=== PATIENT | female | born 1950 | race Caucasian/White ===

== ENCOUNTER 2019-04-27 09:26 | Inpatient (IN) ==
[2019-04-27] MEDS ORDERED: *HR* Warfarin 2 MG TABLET PO ONE (09:42)
[2019-04-27] MEDS ORDERED: *HR* Heparin 5,000 UNIT/ML VIAL IVP PRN (09:42)
[2019-04-27] MEDS ORDERED: *HR* Heparin 5,000 UNIT/ML VIAL IVP ONE (09:42)
[2019-04-27] MEDS ORDERED: *HR* Warfarin 5 MG TABLET PO ONE (09:42)
[2019-04-27] MEDS ORDERED: Gadolinium Contrast Agent (WT Based) IV PRN (09:46)
--- NOTE | 2019-04-27 10:11 | Emergency Department Note ---
Disposition Clinical Impression: Dural sinus thrombosis, CVA (cerebral vascular accident) Multiple myeloma Qualifiers: Multiple myeloma remission status: unspecified Qualified Code(s): C90.00 - Multiple myeloma not having achieved remission Disposition: Admitted As Inpatient Condition: Fair Referrals: Sylvester Boswell MD [Partnered Physician] - Time of Disposition: 13:14 General Adult HPI - General Stated complaint: Blood clot brain Time Seen by Provider: 04/27/19 09:37 Source: patient, family Limitations: no limitations - History of Present Illness Pain Scale: 0 - Related Data Home Medications Medication Instructions Recorded Confirmed Aspirin [Lo-Dose Aspirin EC] 81 mg PO DAILY 11/10/17 04/06/19 hydroCHLOROthiazide 25 mg PO DAILY 01/05/18 04/06/19 [Hydrochlorothiazide] cloNIDine HCl [CloNIDine HCl] 0.1 mg PO TID 02/03/18 04/06/19 Lisinopril [Zestril] 40 mg PO DAILY 03/04/18 04/06/19 Cetirizine HCl [24Hour Allergy] 10 mg PO DAILY 07/06/18 04/06/19 Potassium Chloride [K-Tab ER] 20 meq PO DAILY 12/21/18 04/06/19 Previous Rx's Medication Instructions Recorded Handicap Placard 1 each .ROUTE AD #1 each 04/03/17 Lidocaine/Prilocaine [Emla] 1 appl TP AD #30 gm 05/11/17 Venlafaxine XR (24 HR) [Effexor Xr] 150 mg PO DAILY #90 cap.er.24h 08/03/18 Diphenoxylate/Atropine [Lomotil 2 each PO TID PRN 20 Days #120 10/11/18 2.5 mg/0.025 mg] tablet Ergocalciferol (VITAMIN D2) 50,000 unit PO 2XW #24 capsule 11/05/18 [Vitamin D2] Oxycodone HCl [Roxybond] 5 mg PO Q6H PRN 20 Days #80 12/09/18 tablet.orl Acyclovir [Zovirax] 400 mg PO BID #180 tablet 12/21/18 FLUoxetine HCl [Fluoxetine HCl] 40 mg PO BID #60 capsule 01/12/19 LORazepam [Ativan] 0.5 mg PO Q8H PRN 30 Days #60 01/12/19 tablet Oxybutynin [Ditropan] 5 mg PO DAILY #30 tablet 01/12/19 Prochlorperazine Maleate 10 mg PO Q6H PRN #30 tablet 01/12/19 [Compazine] Handicap Placard 1 each .ROUTE AD #1 each 01/26/19 Allergies Allergy/AdvReac Type Severity Reaction Status Date / Time No Known Allergies Allergy Verified 04/06/19 08:37 Past Medical History - Past Medical History Medical history: Reports: cancer, hyperlipidemia, hypertension Surgical history: Reports: orthopedic, other, other Psychiatric history: Reports: depression - Social History Smoking Status: Never smoker Smokeless Tobacco Status: No Alcohol use: Reports: none Drug use: Reports: none Physical Exam - General Limitations: no limitations General appearance: alert, in no apparent distress Course Vital Signs Temperature 98.0 F 04/27/19 09:27 Pulse Rate 90 04/27/19 09:27 Respiratory Rate 16 04/27/19 09:27 Blood Pressure 142/80 04/27/19 09:27 O2 Sat by Pulse Oximetry 98 04/27/19 09:27 Temperature 98.0 F 04/27/19 09:58 Pulse Rate 90 04/27/19 09:58 Respiratory Rate 16 04/27/19 09:58 Blood Pressure 142/80 04/27/19 09:58 O2 Sat by Pulse Oximetry 98 04/27/19 09:58 Oxygen Delivery Oxygen Delivery Room Air Medical Decision Making - Lab Data Result diagrams: 04/27/19 10:00 04/27/19 10:00 Lab Results 04/27/19 04/27/19 04/27/19 Range/Units 10:00 10:00 10:00 WBC 5.9 (4.3-11.1) K/mcL RBC 4.84 (3.82-4.97) M/mcL Hgb 14.4 (11.5-15.4) g/dL Hct 42.2 (35.3-44.9) % MCV 87.2 (83.0-100.0) fL MCH 29.8 (28.0-33.3) pg MCHC 34.1 (31.6-35.5) g/dL RDW 12.2 (11.5-14.5) % Plt Count 194 (140-400) K/mcL MPV 10.1 (9.4-12.4) fL Immature Gran % 0.3 (0-4) % Seg Neutrophils % 76.8 % Lymphocytes % 14.7 % Monocytes % 7.4 % Eosinophils % 0.3 % Basophils % 0.5 % Neutrophils # 4.6 (1.6-8.9) K/mcL Lymphocytes # 0.9 (0.6-4.6) K/mcL Monocytes # 0.4 (0.0-1.3) K/mcL Eosinophils # 0.0 (0.0-0.6) K/mcL Basophils # 0.0 (0.0-0.2) K/mcL PT 10.4 (9.4-12.1) Seconds INR 0.9 APTT 29.0 (26.0-36.0) Seconds Heparin Anti-Xa, Unfract 0.07 L (0.30-0.70) IU/mL Sodium 140 (136-145) mEq/L Potassium 4.0 (3.5-5.1) mEq/L Chloride 99 (98-107) mEq/L Carbon Dioxide 29 (23-29) mEq/L BUN 16 (8-23) mg/dL Creatinine 0.89 (0.60-1.20) mg/dL Est GFR ( Amer) > 60 (> 60) Est GFR (Non-Af Amer) > 60 (> 60) BUN/Creatinine Ratio 18 (6-26) Glucose 92 (70-105) mg/dL Calculated Osmolality 291 (280-300) Calcium 9.4 (8.6-10.3) mg/dL Critical Care Time Critical Care Time: Yes Total Critical Care Time: 35 Attestation: Critical care performed: Time is exclusive of separately billable procedures. Time includes: direct patient care, patient reassessment, coordination of patient care, interpretation of data (laboratory data, radiology data, and respiratory data), review of patient's medical records, medical consultation and documentation of patient care. Procedures included in critical care time: Procedures excluded from critical care time: Attestation Statement - Attestation Attestation: I, Cosme Vasquez DO, examined this patient [id number] and my medical decis ion-making was reviewed with Dr. Brigette Mcdonadl, Resident Physician. I agree with the documented findings, disposition and treatment plan as described except to the extent set forth below. I personally supervised and was present for the patiño/critical portions of the procedures completed by the resident documented below. Please see my progress notes for details. 69-year-old female presents emergency room for evaluation of CT abnormalities that were noted from her neurologist. Patient has multiple myeloma and breast cancer that have both been treated in the past. She is still currently in chemotherapy secondary to the multiple myeloma. She is diagnosed earlier this month with a stroke . Patient has CT angiography of the abdomen neck yesterday. There is concern for dural venous thrombosis is well possible progression of her stroke. Patient was sent in today for evaluation and heparin infusion with bridging to Coumadin. Patient denies any new neurologic symptoms. She has had intermittent hallucinations at home. She denies any falls trauma or injury. All the symptoms of been slowly coming on over the last several months. Currently she denying chest pain shortness of breath fevers or chills. She does not have any active headache or vision changes. She has intermittently say that she has double vision but this also comes and goes. She has not been started on any new medications. She has not had any prolonged immobilization or surgical intervention. Vital signs are reviewed and are stable. Head is atraumatic. Pupils are equal round reactive. Extraocular muscles are intact with no signs of lateral muscle impingement. Her oropharynx is patent. Trachea is midline. She has full range of motion the neck with no stridor no trismus no meningeal symptoms noted at this time. Lungs are clear heart is regular. Extremities appear to be normal. Patient has no visible signs of ataxia while walking. CT noncontrasted evaluation has been ordered this time considering that timeframe of [address] angiography as well as the patient's described acute stroke noted on the CT angiography yesterday. Once that is completed MRI of the head and MRV will be completed. Patient was screening labs ordered and resulted secondary to the concern for anticoagulation therapy going to be intermittent. Patient is otherwise stable. Risks and benefits to the anti-coagulation therapy were discussed with the family and they are comfortable this plan. Patient also understands his risks. EKG was documented. Reviewed by myself in documented by the resident physician. No acute etiology or changes noted at this time. Patient is otherwise stable. Disposition pending full workup and treatment course. See detailed documentation of the physical exam, medical intervention, medical decision-making and disposition in the resident physician's note. No critical care provider the patient's treatment course at this time. 1300 Imaging modalities are negative for any acute signs of bleed or progressive stroke at this point. She does have confirmed a dural venous thrombosis. Patient will be started on heparin with first dose of Coumadin to be given here. We did discuss this with the on-call neurologist and they are comfortable the patient being admitted and treated at this facility. The hospitalist Dr. Magana also reviewed the case and no other concerns or issues noted at this point. Medications have been given appropriately here in the emergency department and patient will be monitored until the admission process is complete d. 35 minutes of critical care applied secondary to multidisciplinary intervention as well as medical management of what appears to be an acute stroke venous thrombosis or subacute stroke.
--- NOTE | 2019-04-27 10:13 | Emergency Department Note ---
Disposition Clinical Impression: Dural sinus thrombosis Multiple myeloma Qualifiers: Multiple myeloma remission status: unspecified Qualified Code(s): C90.00 - Multiple myeloma not having achieved remission Disposition: Admitted As Inpatient Condition: Good Referrals: Sylvester Boswell MD [Primary Care Provider] - Time of Disposition: 12:59 General Adult HPI - General Stated complaint: Blood clot brain Time Seen by Provider: 04/27/19 09:37 Source: patient, family Mode of arrival: private vehicle Limitations: no limitations Nursing Notes Reviewed: Yes Vital Signs Reviewed: Yes - History of Present Illness HPI Narrative: 69F Pmhx multiple myeloma being treated at the [facility] and here with Dr. Vaughn, Hx breast cancer and HTN. 3 weeks ago started sudden left sided paresthesia and weakness, thought it was related to chemo. Kept happening and did not resolve, so she saw oncologist who eval'd her for CVA who determined she had CVA and thrombosis. Denies current symptoms except for weakness, paresthesia has resolved. Denies new vision changes, headache. Only blood thinner she's on is ASA. Denies dizziness, vertigo. PE: Weakness in left leg/left arm 4/5, no sensory deficit in dermatomes, right lateral nystagmus. Neuro exam without other deficits. I have re-performed and reviewed the history documented by the medical student, and I confirm its accuracy except as noted below. 69-year-old female that was diagnosed with breast cancer in 2013 and multiple myeloma in 2017 and started on an oral medication and then recently transitioned to chemotherapy once a month November of this year. Patient has been having nonspecific symptoms of left-sided weakness and numbness which she attributed to cancer nerve damage for the last 2 months, but was seen by her physician 3 weeks ago and diagnosed with a stroke. Patient has undergone recent imaging with a CTA of her head yesterday which was concerning for a dural sinus thrombosis, her neurologist called the department this morning and stated that he would like her to be started on Coumadin and heparin receive an MRV and be admitted to the hospitalist with oncology consultation. Patient is denying any current symptoms including headache, shortness of breath, chest pain, belly pain, weakness, dizziness. Pain Scale: 0 - Related Data Home Medications Medication Instructions Recorded Confirmed Aspirin [Lo-Dose Aspirin EC] 81 mg PO DAILY 11/10/17 04/06/19 hydroCHLOROthiazide 25 mg PO DAILY 01/05/18 04/06/19 [Hydrochlorothiazide] cloNIDine HCl [CloNIDine HCl] 0.1 mg PO TID 02/03/18 04/06/19 Lisinopril [Zestril] 40 mg PO DAILY 03/04/18 04/06/19 Cetirizine HCl [24Hour Allergy] 10 mg PO DAILY 07/06/18 04/06/19 Potassium Chloride [K-Tab ER] 20 meq PO DAILY 12/21/18 04/06/19 Previous Rx's Medication Instructions Recorded Handicap Placard 1 each .ROUTE AD #1 each 04/03/17 Lidocaine/Prilocaine [Emla] 1 appl TP AD #30 gm 05/11/17 Venlafaxine XR (24 HR) [Effexor Xr] 150 mg PO DAILY #90 cap.er.24h 08/03/18 Diphenoxylate/Atropine [Lomotil 2 each PO TID PRN 20 Days #120 10/11/18 2.5 mg/0.025 mg] tablet Ergocalciferol (VITAMIN D2) 50,000 unit PO 2XW #24 capsule 11/05/18 [Vitamin D2] Oxycodone HCl [Roxybond] 5 mg PO Q6H PRN 20 Days #80 12/09/18 tablet.orl Acyclovir [Zovirax] 400 mg PO BID #180 tablet 12/21/18 FLUoxetine HCl [Fluoxetine HCl] 40 mg PO BID #60 capsule 01/12/19 LORazepam [Ativan] 0.5 mg PO Q8H PRN 30 Days #60 01/12/19 tablet Oxybutynin [Ditropan] 5 mg PO DAILY #30 tablet 01/12/19 Prochlorperazine Maleate 10 mg PO Q6H PRN #30 tablet 01/12/19 [Compazine] Handicap Placard 1 each .ROUTE AD #1 each 01/26/19 Allergies Allergy/AdvReac Type Severity Reaction Status Date / Time No Known Allergies Allergy Verified 04/06/19 08:37 Review of Systems: In addition to that documented in the HPI above, the additional ROS was obtained: Constitutional: Denies fevers or chills Eyes: Denies vision changes ENMT: Denies sore throat CV: Denies chest pain Resp: Denies SOB GI: Denies vomiting or diarrhea : Denies painful urination MSK: Denies recent trauma Skin: Denies new rashes Neuro: Denies new numbness or tingling or weakness Past Medical History - Past Medical History Attestation: Yes The following information was validated with the patient. Medical history: Reports: cancer, hyperlipidemia, hypertension Surgical history: Reports: orthopedic, other, other Psychiatric history: Reports: depression - Social History Smoking Status: Never smoker Smokeless Tobacco Status: No Alcohol use: Reports: none Drug use: Reports: none Physical Exam General: A&O x 3. No acute distress. Well developed, well nourished. Head: atraumatic, normocephalic. ENT: No conjunctival injection, no scleral icterus. PERRLA. EOMI. Oropharynx non-erythematous. mucous membranes moist. Neuro: No focal deficits, no speech deficit, no facial droop, mentating well. BUE/BLE Str 5/5. Sebastian UE/LE sensation intact. CN II-XII intact. Pulm: Lungs CTAB A/P. No wheezes, rales, ronchi. Cardio: RRR no m/r/g. Chest not tender to palpation. Abd: Soft, non-distended. Normoactive bowel sounds. Non-tender to palpation. No guarding. Non rigid. Extremities: Radial pulses 2+ sebastian, dorsalis pedis/posterior tibialis 2+ sebastian. No LE edema. No cyanosis, clubbing. Skin: warm, dry, intact. No rashes. Psych: Appropriate mood and affect. Answers questions appropriately. Cooperative with exam. - General Limitations: no limitations General appearance: alert, in no apparent distress Course Vital Signs Temperature 98.0 F 04/27/19 09:27 Pulse Rate 90 04/27/19 09:27 Respiratory Rate 16 04/27/19 09:27 Blood Pressure 142/80 04/27/19 09:27 O2 Sat by Pulse Oximetry 98 04/27/19 09:27 Temperature 98.0 F 04/27/19 09:58 Pulse Rate 90 04/27/19 09:58 Respiratory Rate 16 04/27/19 09:58 Blood Pressure 142/80 04/27/19 09:58 O2 Sat by Pulse Oximetry 98 04/27/19 09:58 Oxygen Delivery Oxygen Delivery Room Air Medical Decision Making - MDM Narrative Medical decision making narrative: 69-year-old female that presents after her neurologist was concerned that she needed to be started on anticoagulation for a dural sinus thrombosis utilized on CTA yesterday. Patient underwent a head CT as well as an MRI of the brain and MRV of the brain which did not demonstrate any hemorrhage Darlin conversion of previous stroke, and showed a stable sinus thrombosis. Neurology was consult head, my attending Dr. Vasquez spoke with Winston Donovan in Neurology who stated that the patient should be started on coumadin and heparin as planned and that they were comfortable with the patient staying here for treatment. Spoke with hospitalist, Dr. Magana, who agreed to accept the patient to his service. Results of the workup including any imaging and/or labwork was shared with the patient at bedside. Patient was given an opportunity to ask questions at bedside and all of their concerns were addressed. Patient verbalized understanding and agreement with plan of care. Pt remained stable while in the department. - Medical Records Medical records reviewed: Yes I reviewed the patient's medical records. - Lab Data Lab results reviewed: Yes I reviewed the patient's lab results. Result diagrams: 04/27/19 10:00 04/27/19 10:00 Lab Results 04/27/19 04/27/19 04/27/19 Range/Units 10:00 10:00 10:00 WBC 5.9 (4.3-11.1) K/mcL RBC 4.84 (3.82-4.97) M/mcL Hgb 14.4 (11.5-15.4) g/dL Hct 42.2 (35.3-44.9) % MCV 87.2 (83.0-100.0) fL MCH 29.8 (28.0-33.3) pg MCHC 34.1 (31.6-35.5) g/dL RDW 12.2 (11.5-14.5) % Plt Count 194 (140-400) K/mcL MPV 10.1 (9.4-12.4) fL Immature Gran % 0.3 (0-4) % Seg Neutrophils % 76.8 % Lymphocytes % 14.7 % Monocytes % 7.4 % Eosinophils % 0.3 % Basophils % 0.5 % Neutrophils # 4.6 (1.6-8.9) K/mcL Lymphocytes # 0.9 (0.6-4.6) K/mcL Monocytes # 0.4 (0.0-1.3) K/mcL Eosinophils # 0.0 (0.0-0.6) K/mcL Basophils # 0.0 (0.0-0.2) K/mcL PT 10.4 (9.4-12.1) Seconds INR 0.9 APTT 29.0 (26.0-36.0) Seconds Heparin Anti-Xa, Unfract 0.07 L (0.30-0.70) IU/mL Sodium 140 (136-145) mEq/L Potassium 4.0 (3.5-5.1) mEq/L Chloride 99 (98-107) mEq/L Carbon Dioxide 29 (23-29) mEq/L BUN 16 (8-23) mg/dL Creatinine 0.89 (0.60-1.20) mg/dL Est GFR ( Amer) > 60 (> 60) Est GFR (Non-Af Amer) > 60 (> 60) BUN/Creatinine Ratio 18 (6-26) Glucose 92 (70-105) mg/dL Calculated Osmolality 291 (280-300) Calcium 9.4 (8.6-10.3) mg/dL - Radiology Data Radiology results reviewed: Yes I reviewed the patient's radiology results. Head CT 04/27/19 09:41 IMPRESSION: 1. Involving right occipital lobe infarct without evidence for hemorrhagic transformation. 2. Chronic small vessel ischemic disease. D/ / Jeremiah Foreman MD / Jeremiah Foreman MD Interpreting Provider: Jeremiah Foreman MD Head/Brain Mag Res Venography 04/27/19 09:46 IMPRESSION: Filling defect within the left distal transverse and sigmoid sinus compatible with thrombus. D/ / Mateo Culp MD / Mateo Culp MD Interpreting Provider: Mateo Culp MD Brain MRI 04/27/19 10:13 IMPRESSION: 1. No acute intracranial abnormality. No acute infarct. 2. Areas of subacute infarct involving the left frontal and right parietal lobes. 3. Loss of the normal signal void is seen in the left transverse and sigmoid sinus, which is similar to the prior exam. This can be seen with slow flow versus occlusion/thrombus. 4. Mild global parenchymal volume loss with chronic microvascular ischemic changes. D/ / Mateo Culp MD / Mateo Culp MD Interpreting Provider: Mateo Culp MD Attestation Statement - Attestation Attestation: I, Cosme Vasquez DO, examined this patient [id number] and my medical decision-making was reviewed with Dr. Brigette Mcdonald, Resident Physician. I agree with the documented findings, disposition and treatment plan as described except to the extent set forth below. I personally supervised and was present for the patiño/critical portions of the procedures completed by the resident documented below. Please see my progress notes for details.
[2019-04-27 10:22] LABS: Basophils % 0.5 %; Eosinophils % 0.3 %; Hematocrit 42.2 % (35.3-44.9); Hemoglobin 14.4 g/dL (11.5-15.4); Immature Granulocytes % 0.3 % (0-4); Lymphocytes # 0.9 K/mcL (0.6-4.6); Lymphocytes % 14.7 %; Mean Corpuscular HGB Conc 34.1 g/dL (31.6-35.5); Mean Corpuscular Hemoglobin 29.8 pg (28.0-33.3); Mean Corpuscular Volume 87.2 fL (83.0-100.0); Mean Platelet Volume 10.1 fL (9.4-12.4); Monocytes # 0.4 K/mcL (0.0-1.3); Monocytes % 7.4 %; Neutrophils # 4.6 K/mcL (1.6-8.9); Platelet Count 194 K/mcL (140-400); Red Blood Count 4.84 M/mcL (3.82-4.97); Red Cell Distribution Width 12.2 % (11.5-14.5); Segmented Neutrophils % 76.8 %; White Blood Count 5.9 K/mcL (4.3-11.1)
[2019-04-27 10:32] LABS: Heparin anti-factor XA UFH 0.07 IU/mL (0.30-0.70); INR 0.9; Prothrombin Time 10.4 Seconds (9.4-12.1)
[2019-04-27 10:51] LABS: BUN/Creatinine Ratio 18 (6-26); Blood Urea Nitrogen 16 mg/dL (8-23); Calcium 9.4 mg/dL (8.6-10.3); Carbon Dioxide 29 mEq/L (23-29); Chloride 99 mEq/L (98-107); Glucose 92 mg/dL (70-105); Osmolality,Calculated 291 (280-300); Sodium 140 mEq/L (136-145); eGFR For African Americans > 60 (> 60); eGFR For Non-African Americans > 60 (> 60)
[2019-04-27] MEDS: Heparin 25,000 UNIT/250 ML D5W 25,000 UNIT/250 ML IV.SOLN IVC SCH (13:11)
[2019-04-27] MEDS ORDERED: Naloxone 0.4 MG/ML INJ IVP PRN (15:04)
[2019-04-27] MEDS ORDERED: Diphenoxylate/Atropine 1 TAB TABLET PO PRN (15:14)
[2019-04-27] MEDS ORDERED: *HR* OxyCODONE Immed Rel 5 MG TABLET PO PRN (15:14)
--- NOTE | 2019-04-27 15:16 | Neurology - Consult Note ---
<Winston Donovan J - Last Filed: 04/27/19 17:16> Date of Encounter: 04/27/19 Time of Encounter: 15:07 Assessment and Plan (1) Dural sinus thrombosis Current Visit: Yes Status: Acute SX of left leg numbness No other neurological complaints Recent CVA x3 weeks ago CTA head/neck with findings concerning for dural sinus thrombosis See in f/u in Neurology clinic today; instructed to go to ED MRI today negative for acute infarct finding only areas of subacute infarct in the left frontal and right parietal lobe MRV revealing a filling defect within the left distal transverse and sigmoid sinus compatible with thrombus She is being admitted for close monitoring of her neurological status; NIHSS and neurological assessments per protocol She is currently on a heparin GTT; transition to Coumadin Will likely need long-term oral anticoagulation; I suspect she will need 3 months or longer given h/o breast cancer and multiple myeloma Rec hem/onc cs to provide recommendations regarding duration of tx in the setting of breast cancer and multiple myeloma Neurology will f/u in am; please call should any urgent needs arise History of Present Illness Chief complaint: dural sinus thrombosis HPI: Ms. Edwards is a 69 year old female with a PMH of multiple myeloma in 2016, breast cancer in 2013, HLD and HTN who presents today from the Neurology clinic d/t CTA head and neck imaging concerning for dural sinus thrombosis. As she reports she has been experiencing ongoing left leg numbness and tingling. She was diagnosed with a CVA three weeks ago. The workup s/p CVA revealed the above findings. As such she is being admitted for anticoagulation bridging and monitoring. She denies any visual or gait disturbances, denies any dysarthria, dysphagia, headaches, facial asymmetry, unilateral weakness or parasthesias. MRI of the brain completed today reveals no acute intracranial abnormality, specifically no acute infarct. There are areas of subacute infarct involving the left frontal and right parietal lobes. Additionally there is loss of normal signal void seen in the left transverse and sigmoid sinus which is similar to prior exam. Subsequently, an MRV found filling defect in the left distal transverse and sigmoid sinus compatible with thrombus. Past Med Surg Social Fam HX - Past Medical History Medical history: cancer, hyperlipidemia, hypertension Additional medical history: Right Breast CA. Multiple Myeloma. Radiation/Chemo [place] Psychiatric history: depression - Past Surgical History Surgical History: orthopedic, other, other Additional surgical history: Back surgery, meniscus tear, shoulder spur removal, pins placed - Social History Smoking Status: Never smoker Smokeless Tobacco Status: No Alcohol use: none Drug use: none - Family History Brother Hx Family Cancer: Yes (prostate) Medications and Allergies Handicap Placard 1 each .ROUTE AD #1 each 04/03/17 [Rx] Lidocaine/Prilocaine [Emla] 1 appl TP AD #30 gm 05/11/17 [Rx] Aspirin [Lo-Dose Aspirin EC] 81 mg PO DAILY 11/10/17 [History] hydroCHLOROthiazide [Hydrochlorothiazide] 25 mg PO DAILY 01/05/18 [History] cloNIDine HCl [CloNIDine HCl] 0.1 mg PO TID 02/03/18 [History] Lisinopril [Zestril] 40 mg PO DAILY 03/04/18 [History] Cetirizine HCl [24Hour Allergy] 10 mg PO DAILY 07/06/18 [History] Venlafaxine XR (24 HR) [Effexor Xr] 150 mg PO DAILY #90 cap.er.24h 08/03/18 [Rx] Diphenoxylate/Atropine [Lomotil 2.5 mg/0.025 mg] 2 each PO TID PRN 20 Days #120 tablet 10/11/18 [Rx] Ergocalciferol (VITAMIN D2) [Vitamin D2] 50,000 unit PO 2XW #24 capsule 11/05/18 [Rx] Oxycodone HCl [Roxybond] 5 mg PO Q6H PRN 20 Days #80 tablet.orl 12/09/18 [Rx] Acyclovir [Zovirax] 400 mg PO BID #180 tablet 12/21/18 [Rx] Potassium Chloride [K-Tab ER] 20 meq PO DAILY 12/21/18 [History] FLUoxetine HCl [Fluoxetine HCl] 40 mg PO BID #60 capsule 01/12/19 [Rx] LORazepam [Ativan] 0.5 mg PO Q8H PRN 30 Days #60 tablet 01/12/19 [Rx] Oxybutynin [Ditropan] 5 mg PO DAILY #30 tablet 01/12/19 [Rx] Prochlorperazine Maleate [Compazine] 10 mg PO Q6H PRN #30 tablet 01/12/19 [Rx] Handicap Placard 1 each .ROUTE AD #1 each 01/26/19 [Rx] Allergy/AdvReac Type Severity Reaction Status Date / Time No Known Allergies Allergy Verified 04/06/19 08:37 All Systems: The remainder of the systems were reviewed and are negative Review of Systems: REVIEW OF SYSTEMS NEUROLOGIC: Negative for any blurry vision, blind spots, double vision, facial asymmetry, dysphagia, dysarthria, hemiparesis, hemisensory deficits, vertigo, ataxia, unilateral weakness POSITIVE- left leg numbness CARDIAC: Negative for any chest pain, dyspnea, peripheral edema or palpitations MUSCULOSKELETAL: NEGATIVE-Joint pain, stiffness, loss of strength Physical Examination - Vital Signs Vital Signs: Initial Vital Signs Temp Pulse Resp BP Pulse Ox 98.0 F 90 16 142/80 98 04/27/19 09:27 04/27/19 09:27 04/27/19 09:27 04/27/19 09:27 04/27/19 09:27 - Exam Exam: Examination: General Examination: *CONSTITUTIONAL: Alert and oriented x3, no acute distress *GENERAL APPEARANCE OF PATIENT appears healthy and well groomed *EYES: pupils equal, round, reactive to light and accommodation, conjunctiva clear *CARDIOVASCULAR: RRR, no peripheral edema, distal temperature normal, dorsalis pedis pulses normal. Refer to vital signs * MUSCULOSKELETAL: *GAIT AND STATION: Deferred *ASSESSMENT OF MUSCLE STRENGTH IN THE UPPER AND LOWER EXTREMITIES Bilateral deltoid, bicep, tricep, grocery stocker strength 5/5, Right hip flexors ,anterior tibialis, dorsoflexion of the foot 5/5. Left hip flexor, anterior tibialis is 4/5 *MUSCLE TONE IN THE UPPER AND LOWER EXTREMITIES normal. No abnormal movements, fasciculations or atrophy identified. Neurological: *ORIENTATION to person, situation, time and place *LANGUAGE AND FUNCTION no significant aphasia or dysarthia was noted. *ATTENTION AND CONCENTRATION are normal *LANGUAGE FUNCTION no significant aphasia or dysarthia was noted. *FUND OF KNOWLEDGE aware of current events, past history, vocabulary *MENTAL attention span and concentration normal. *CN II optic fundi were normal, no papilledema noted. *CN III,IV, PERRLA extraocular eye movements were full, no nystagmus and no ptosis noted. *CN V shows normal sensation and jaw opens symmetrically. *CN VII shows normal facial movement symmetrically, upper and lower bilaterally. *CN VIII shows no significant hearing loss on exam *CN IX-Xpalate elevated symmetrically *CN XI normal strength in the sternocleidomastoid muscles, symmetrical shoulder shrugging. *CN XII tongue protruded in the midline, with normal strength and movement. *SENSORY EXAMINATION light touch intact *REFLEXES: DTR b/l bicep, brachioradialis, and tricep are 1/4 diffusely, absent b/l patella and plantar reflexes, no pathological reflexes were noted. *CEREBELLAR TESTING normal finger to nose, heel/knee/claire *PAIN LEVEL 0/10 Results - Laboratory Findings CBC and BMP: 04/27/19 10:00 04/27/19 10:00 Abnormal lab findings: Abnormal lab results Heparin Anti-Xa, Unfract 0.07 IU/mL (0.30-0.70) L 04/27/19 10:00 - Diagnostic Findings Additional findings: MR/MR angio veno head wo/w con IMPRESSION: Filling defect within the left distal transverse and sigmoid sinus compatible with thrombus. MR/MR head/brain wo con IMPRESSION: 1. No acute intracranial abnormality. No acute infarct. 2. Areas of subacute infarct involving the left frontal and right parietal lobes. 3. Loss of the normal signal void is seen in the left transverse and sigmoid sinus, which is similar to the prior exam. This can be seen with slow flow versus occlusion/thrombus. 4. Mild global parenchymal volume loss with chronic microvascular ischemic changes. Consult Discharge Plan - Plan Referrals: Sylvester Boswell MD [Primary Care Provider] - <Barber Durant - Last Filed: 04/27/19 18:34> Date of Encounter: 04/27/19 Assessment and Plan (1) Dural sinus thrombosis Current Visit: Yes Status: Acute I have personally performed a [id number] assessment of the patient and have reviewed the PA/FLEXOGRAPHIC PRESS PLATE SETTER note. My impressions are as follows: As stated previously the case was discussed with the [facility] PSYCHI[facility]ST as well as Dr. Schreiber. I did review the neuroimaging studies and examined the patient personally. I agree with his assessment and plan as documented above. Patient at this time is showing no evidence of acute distress no evidence of increased intracranial pressure is present. We will follow. History of Present Illness HPI: The chart was reviewed, the patient was seen and examined independently. Case was discussed with the [employer] [facility] PSYCHIATRIST as well as Dr. Schreiber. I agree with the documentation of the history of present illness as outlined above. She denies ever having any history of previous deep vein thrombosis or pulmonary embolisms. Denies any history of miscarriages during . Denies cigarette smoking. All Systems: The remainder of the systems were reviewed and are negative Review of Systems: The balance of the systems review is negative. Physical Examination - Vital Signs Vital Signs: Initial Vital Signs Temp Pulse Resp BP Pulse Ox 98.0 F 90 16 142/80 98 04/27/19 09:27 04/27/19 09:27 04/27/19 09:27 04/27/19 09:27 04/27/19 09:27 - Exam Exam: I have personally performed a [id number] assessment of the patient and have reviewed the PA/FLEXOGRAPHIC PRESS PLATE SETTER note. My impressions are as follows: I agree with the neurologic examination is documented above. Results - Laboratory Findings CBC and BMP: 04/27/19 10:00 04/27/19 10:00 Abnormal lab findings: Abnormal lab results Heparin Anti-Xa, Unfract 1.11 IU/mL (0.30-0.70) H* 04/27/19 15:58
--- NOTE | 2019-04-27 15:20 | Internal Med History&Physical ---
Date of Encounter: 04/27/19 Time of Encounter: 15:15 Internal Medicine - H&P: HPI Chief complaint: Dural venous thrombosis Admitted From: Emergency Dept Plans for Post Hospital Care: Home History of present illness: Ms. Edwards is a 69 year old female with a past medical history significant for multiple myeloma diagnosed in 2017 currently following up with oncology, breast cancer status post lumpectomy in 2013 with chemoradiation, currently in remission, hypertension, stroke, is being admitted to the hospital from the emergency department because of diagnosis of dural sinus thrombosis. Patient had a stroke almost 3 weeks back with weakness in the lower extremities, patient was following up with a neurologist which she had CTA of THE NECK DONE WHICH SHOWED left sigmoid sinus thrombosis. Patient was sent by the neurologist to the hospital today for anticoagulation. MR angiography was done in the emergency department which showed filling defect within the left distal transverse and sigmoid sinus compatible with thrombus. Patient was started on heparin drip and admitted to continue the heparin drip and being transitioned to Coumadin. Patient does not have any previous history of deep vein thrombosis. Currently, patient denies any visual disturbance, dysarthria, dysphagia, headaches, paresthesia. Patient endorses numbness of the right lower extremity which has been present for 3-4 weeks. Previous MRI has showed areas of subacute infarct involving the left frontal and right parietal lobes. There are no acute findings regarding stroke on the most recent CT scan and the MRI. Patient was hemodynamically stable in the emergency department. Laboratory workup did not show any significant findings. No arrhythmias noted on EKG Past Med Surg Social Fam HX - Past Medical History Medical history: cancer, hyperlipidemia, hypertension Additional medical history: Right Breast CA. Multiple Myeloma. Radiation/Chemo [place] Psychiatric history: depression - Past Surgical History Surgical History: orthopedic, other, other Additional surgical history: Back surgery, meniscus tear, shoulder spur removal, pins placed - Social History Smoking Status: Never smoker Smokeless Tobacco Status: No Alcohol use: none Drug use: none - Family History Brother Hx Family Cancer: Yes (prostate) Internal Medicine - H&P: Meds Handicap Placard 1 each .ROUTE AD #1 each 04/03/17 [Rx] Lidocaine/Prilocaine [Emla] 1 appl TP AD #30 gm 05/11/17 [Rx] Aspirin [Lo-Dose Aspirin EC] 81 mg PO DAILY 11/10/17 [History] hydroCHLOROthiazide [Hydrochlorothiazide] 25 mg PO DAILY 01/05/18 [History] cloNIDine HCl [CloNIDine HCl] 0.1 mg PO TID 02/03/18 [History] Lisinopril [Zestril] 40 mg PO DAILY 03/04/18 [History] Cetirizine HCl [24Hour Allergy] 10 mg PO DAILY 07/06/18 [History] Venlafaxine XR (24 HR) [Effexor Xr] 150 mg PO DAILY #90 cap.er.24h 08/03/18 [Rx] Diphenoxylate/Atropine [Lomotil 2.5 mg/0.025 mg] 2 each PO TID PRN 20 Days #120 tablet 10/11/18 [Rx] Ergocalciferol (VITAMIN D2) [Vitamin D2] 50,000 unit PO 2XW #24 capsule 11/05/18 [Rx] Oxycodone HCl [Roxybond] 5 mg PO Q6H PRN 20 Days #80 tablet.orl 12/09/18 [Rx] Acyclovir [Zovirax] 400 mg PO BID #180 tablet 12/21/18 [Rx] Potassium Chloride [K-Tab ER] 20 meq PO DAILY 12/21/18 [History] FLUoxetine HCl [Fluoxetine HCl] 40 mg PO BID #60 capsule 01/12/19 [Rx] LORazepam [Ativan] 0.5 mg PO Q8H PRN 30 Days #60 tablet 01/12/19 [Rx] Oxybutynin [Ditropan] 5 mg PO DAILY #30 tablet 01/12/19 [Rx] Prochlorperazine Maleate [Compazine] 10 mg PO Q6H PRN #30 tablet 01/12/19 [Rx] Handicap Placard 1 each .ROUTE AD #1 each 01/26/19 [Rx] Allergy/AdvReac Type Severity Reaction Status Date / Time No Known Allergies Allergy Verified 04/06/19 08:37 All Systems PM: A 10-system review of systems was performed and is negative for pertinent findings except as documented above in the HPI. Review of systems: General: Negative for fever, chills, rigors. HEENT: Negative for swelling, discharge from nose, discharge from ears. EYES: Negative for any discharge from the eyes. Respiratory: Negative for shortness of breath, orthopnea, exertional dyspnea. Cardiovascular: Negative for chest pain, shortness of breath, orthopnea, PND. Gastrintestical: Negative for diarrhea, constipation, blood in stools. Genitourinary: Negative for dysuria, hematuria, nocturia, increased frequency of urine. Hematological: Negative for blood loss, negative for active cancer. Neurological: See HPI Endocrinology: Negative for constipation, polyuria, polydipsia. Psychiatric: Negative for anxiety or depression. - Constitutional Vitals: Temp Pulse Resp BP Pulse Ox 98.7 F 98 16 147/82 98 04/27/19 15:09 04/27/19 15:09 04/27/19 15:09 04/27/19 15:09 04/27/19 15:09 Exam: General: Alert and oriented, no physical distress, able to follow commands. HEENT: No thyromegaly, no lymphadenopathy, no discharge. Eyes: No discharge. Respiratory: Normal vesicular breathing, no added sounds, breathing equal in both sides. CVS: Normal heart sounds, no murmurs, no edema. Extremities: No peripheral edema, peripheral pulses intact. Lymph nodes: No lymphadenopathy Gastrointestinal: Soft, nontender abdomen, normal abdominal sounds. No distention noted. Genitourinary: No paravertebral tenderness. Neurological: Alert and oriented. Motor exam normal in lower extremites, sensations to light touch normal, plantar reflexes decreased on both sides, finger ot nose test normal, Cranial nerves II-XII intact. Internal Med - H&P Results - Labs CBC & Chem 7: 04/27/19 10:00 04/27/19 10:00 Labs: Short CBC 04/27/19 Range/Units 10:00 WBC 5.9 (4.3-11.1) K/mcL Hgb 14.4 (11.5-15.4) g/dL Hct 42.2 (35.3-44.9) % Plt Count 194 (140-400) K/mcL Neutrophils # 4.6 (1.6-8.9) K/mcL BMP 04/27/19 10:00 Sodium 140 Potassium 4.0 Chloride 99 Carbon Dioxide 29 BUN 16 Creatinine 0.89 Glucose 92 Calcium 9.4 - Impressions ITS Impressions Head CT 04/27/19 09:41 IMPRESSION: 1. Involving right occipital lobe infarct without evidence for hemorrhagic transformation. 2. Chronic small vessel ischemic disease. D/ / Jeremiah Foreman MD / Jeremiah Foreman MD Interpreting Provider: Jeremiah Foreman MD Head/Brain Mag Res Venography 04/27/19 09:46 IMPRESSION: Filling defect within the left distal transverse and sigmoid sinus compatible with thrombus. D/ / Mateo Culp MD / Mateo Culp MD Interpreting Provider: Mateo Culp MD Brain MRI 04/27/19 10:13 IMPRESSION: 1. No acute intracranial abnormality. No acute infarct. 2. Areas of subacute infarct involving the left frontal and right parietal lobes. 3. Loss of the normal signal void is seen in the left transverse and sigmoid sinus, which is similar to the prior exam. This can be seen with slow flow versus occlusion/thrombus. 4. Mild global parenchymal volume loss with chronic microvascular ischemic changes. D/ / Mateo Culp MD / Mateo Culp MD Interpreting Provider: Mateo Culp MD - Assessment and Plan (1) Dural sinus thrombosis Current Visit: Yes Status: Acute Assessment and plan: - imaging studies consistent with left distal transverse and sigmoid sinus thrombosis. Neurology on board. Patient has been started on heparin drip, is being transitioned to Coumadin. Patient might be needing lifelong anticoagulation considering multiple myeloma. We will consult hematology/oncology for recommendations. No focal deficits noted. NIH/ neurological checks as per neurology recommendations. PT/OT (2) Back pain Current Visit: Yes Status: Chronic Assessment and plan: -Chronic in context of MM -On oxycodone -COntinue the pain regimne Qualifiers: Back pain location: low back pain Chronicity: chronic Back pain laterality: bilateral Sciatica presence: unspecified whether sciatica present Qualified Code(s): M54.5 - Low back pain; G89.29 - Other chronic pain (3) Hypertension Current Visit: Yes Status: Chronic Assessment and plan: -BP stable -COntinue clonidine, lisinopril Qualifiers: Hypertension type: essential hypertension Qualified Code(s): I10 - Essent ial (primary) hypertension (4) CVA (cerebral vascular accident) Current Visit: Yes Status: Acute Assessment and plan: -Had a CVA 3 weeks back as evidnce by the MRI with some lower extremity residual weakness -No new findings on MRI today -COnt aspirin -Neuro on board -PT/OT Qualifiers: CVA mechanism: unspecified Qualified Code(s): I63.9 - Cerebral infarction, unspecified (5) Multiple myeloma Current Visit: Yes Status: Acute Assessment and plan: -F/u with the oncology Qualifiers: Multiple myeloma remission status: unspecified Qualified Code(s): C90.00 - Multiple myeloma not having achieved remission (6) Anxiety Current Visit: No Status: Chronic Assessment and plan: -Curretly looks calm -On ativan PRN for anxiety which we weill continue (7) Anticoagulated on Coumadin Current Visit: Yes Status: Acute Assessment and plan: -Started on AC on coumadin -INR before starting was 0.9 -Was given 5mg PO in the ED -Will check INR tomorrow morning -Further coumadin dosing and adjustments as per pharmacy - Time Spent With Patient Total time spent is greater than 50% in coordination of care (as documented) at patient's floor/unit and/or counseling patient:
[2019-04-27] MEDS ORDERED: Warfarin perPT PO PRN (18:00)
[2019-04-27] MEDS: FLUoxetine 20 MG CAPSULE PO SCH (21:36)
[2019-04-27] MEDS: cloNIDine HCl 0.1 MG TABLET PO SCH (21:36)
[2019-04-27] MEDS: Acyclovir 200 MG CAPSULE PO SCH (21:37)
[2019-04-27] MEDS: *HR* LORazepam 0.5 MG TABLET PO PRN (21:37)
[2019-04-27] MEDS: *HR* Heparin 5,000 UNIT/ML VIAL IVP PRN (23:21)
[2019-04-28 05:57] LABS: Basophils % 0.4 %; Eosinophils % 0.8 %; Hematocrit 41.4 % (35.3-44.9); Hemoglobin 14.1 g/dL (11.5-15.4); Immature Granulocytes % 0.2 % (0-4); Lymphocytes # 1.1 K/mcL (0.6-4.6); Lymphocytes % 21.6 %; Mean Corpuscular HGB Conc 34.1 g/dL (31.6-35.5); Mean Corpuscular Hemoglobin 30.3 pg (28.0-33.3); Mean Platelet Volume 9.9 fL (9.4-12.4); Monocytes # 0.4 K/mcL (0.0-1.3); Monocytes % 7.4 %; Neutrophils # 3.7 K/mcL (1.6-8.9); Platelet Count 166 K/mcL (140-400); Red Blood Count 4.65 M/mcL (3.82-4.97); Red Cell Distribution Width 12.2 % (11.5-14.5); Segmented Neutrophils % 69.6 %; White Blood Count 5.2 K/mcL (4.3-11.1)
[2019-04-28 06:15] LABS: BUN/Creatinine Ratio 17 (6-26); Blood Urea Nitrogen 13 mg/dL (8-23); Carbon Dioxide 25 mEq/L (23-29); Chloride 103 mEq/L (98-107); Glucose 112 mg/dL (70-105); Osmolality,Calculated 289 (280-300); Potassium 3.6 mEq/L (3.5-5.1); Sodium 139 mEq/L (136-145); eGFR For African Americans > 60 (> 60); eGFR For Non-African Americans > 60 (> 60)
[2019-04-28 06:16] LABS: Prothrombin Time 11.1 Seconds (9.4-12.1)
[2019-04-28 09:24] LABS: Bilirubin,Urine Negative (Negative); Blood,Urine Moderate (Negative); Clarity,Urine Cloudy (Clear); Color,Urine Yellow (Yellow); Glucose,Urine (UA) Normal (Normal); Ketones,Urine Negative (Negative); Leukocyte Esterase,Urine Large (Negative); Nitrite,Urine Positive (Negative); Protein,Urine 30 mg/dL (Neg-Trace); Specific Gravity,Urine 1.021 (1.010-1.025); Urobilinogen,Urine Normal (Normal)
[2019-04-28] MEDS: FLUoxetine 20 MG CAPSULE PO SCH ×2 (09:26→21:29)
[2019-04-28] MEDS: hydroCHLOROthiazide 25 MG TABLET PO SCH (09:26)
[2019-04-28] MEDS: Loratadine 10 MG TABLET PO SCH (09:26)
[2019-04-28] MEDS: *HR* LORazepam 0.5 MG TABLET PO PRN (09:26)
[2019-04-28] MEDS: cloNIDine HCl 0.1 MG TABLET PO SCH ×3 (09:26→21:29)
[2019-04-28] MEDS: Aspirin Enteric Coated 81 MG Tablet PO SCH (09:26)
[2019-04-28] MEDS: Venlafaxine XR (24 HR) 150 MG CAP.ER.24H PO SCH (09:26)
[2019-04-28] MEDS: Acyclovir 200 MG CAPSULE PO SCH ×2 (09:27→21:29)
[2019-04-28] MEDS: Lisinopril 20 MG TABLET PO SCH (09:27)
[2019-04-28 09:29] LABS: Bacteria,Urine Many per hpf (None-Few); Hyaline Casts,Urine None Seen per lpf (None-Few); Squamous Epithelial Cell,Urine Many per lpf (None-Few); WBC,Urine TNTC per hpf (0-3)
[2019-04-28] MEDS: Heparin 25,000 UNIT/250 ML D5W 25,000 UNIT/250 ML IV.SOLN IVC SCH (09:31)
[2019-04-28 09:52] LABS: Transitional Epi Cells,Urine Few per hpf (None-Few)
[2019-04-28 09:53] LABS: Renal Epithelial Cells,Urine Few per hpf (None-Few)
--- NOTE | 2019-04-28 10:23 | Neurology Progress Note ---
<Winston Donovan - Last Filed: 04/28/19 10:18> Date of Encounter: 04/28/19 Time of Encounter: 10:18 Assessment and Plan (1) Dural sinus thrombosis Current Visit: Yes Status: Acute Clinically, the patient is intact without any signs of focal neurologic findings. There are no signs of increased intracranial pressure. The patient is awake, alert and oriented 4 and appears to be in no distress. At this juncture she remains on a heparin drip with plans to transition to Coumadin. She will need a neurology follow-up with Dr. Schreiber in 2 months upon discharge. Additionally, she will need repeat imaging to assess for resolution of dural sin us thrombosis. No further workup or medication changes recommended at this time. Neurology will continue to follow. Subjective Principal diagnosis: Dural sinus thrombosis Interval history: The patient was seen in follow-up for dural sinus thrombosis. She has had a recent CVA approximately 3 weeks ago with residual left leg numbness and tingling. Chart was reviewed, the patient was seen and examined at the bedside today. Clinically she is stable without any neurological deficits overnight and no signs of increased intracranial pressure. Neurologically she is intact with a nonfocal exam. She is currently on a heparin drip with Coumadin bridge. I discussed with the patient that she will need to be on anticoagulation for at least 3 months. Further, I discussed the need for follow-up with Dr. Ace in 2 months and the need for repeat imaging to monitor for resolution of dural sinus thrombosis. The patient verbalizes understanding and denies any further questions. Objective - Constitutional Vitals: Temp Pulse Resp BP Pulse Ox 98.4 F 100 14 156/79 98 04/28/19 07:14 04/28/19 07:14 04/28/19 07:14 04/28/19 07:14 04/28/19 07:14 Exam: Examination: General Examination: *CONSTITUTIONAL: Awake, Alert and oriented x4, no acute distress *GENERAL APPEARANCE OF PATIENT appears healthy and well groomed *EYES: pupils equal, round, reactive to light and accommodation, conjunct qasim clear *CARDIOVASCULAR: RRR, no peripheral edema, distal temperature normal, dorsalis pedis pulses normal. Refer to vital signs * MUSCULOSKELETAL: *GAIT AND STATION: Deferred *ASSESSMENT OF MUSCLE STRENGTH IN THE UPPER AND LOWER EXTREMITIES Bilateral deltoid, bicep, tricep, clinical trials manager strength 5/5, Right hip flexors ,anterior tibialis, dorsoflexion of the foot 5/5. Left hip flexor, anterior tibialis is 4/5 *MUSCLE TONE IN THE UPPER AND LOWER EXTREMITIES normal. No abnormal movements, fasciculations or atrophy identified. Neurological: No signs of intracranial pressure on exam *ORIENTATION to person, situation, time and place *LANGUAGE AND FUNCTION no significant aphasia or dysarthia was noted. *ATTENTION AND CONCENTRATION are normal *LANGUAGE FUNCTION no significant aphasia or dysarthia was noted. *FUND OF KNOWLEDGE aware of current events, past history, vocabulary *MENTAL attention span and concentration normal. *CN II optic fundi were normal, no papilledema noted. *CN III,IV, PERRLA extraocular eye movements were full, no nystagmus and no ptosis noted. *CN V shows normal sensation and jaw opens symmetrically. *CN VII shows normal facial movement symmetrically, upper and lower bila terally. *CN VIII shows no significant hearing loss on exam *CN IX-Xpalate elevated symmetrically *CN XI normal strength in the sternocleidomastoid muscles, symmetrical shoulder shrugging. *CN XII tongue protruded in the midline, with normal strength and movement. *SENSORY EXAMINATION deep and light touch intact *REFLEXES: DTR b/l bicep, brachioradialis, and tricep are 1/4 diffusely, absent b/l patella and plantar reflexes, no pathological reflexes were noted. *CEREBELLAR TESTING normal finger to nose, heel/claire intact Results - Laboratory Findings CBC and BMP: 04/28/19 05:43 04/28/19 05:43 Abnormal lab findings: Abnormal lab results Heparin Anti-Xa, Unfract 0.26 IU/mL (0.30-0.70) L 04/27/19 22:27 Glucose 112 mg/dL (70-105) H 04/28/19 05:43 Urine Clarity Cloudy (Clear) A 04/28/19 08:50 Urine Protein 30 mg/dL (Neg-Trace) H 04/28/19 08:50 Urine Blood Moderate (Negative) H 04/28/19 08:50 Urine Nitrite Positive (Negative) A 04/28/19 08:50 Ur Leukocyte Esterase Large (Negative) H 04/28/19 08:50 Urine Microscopic RBC 3-5 per hpf (0-3) H 04/28/19 08:50 Urine Microscopic WBC TNTC per hpf (0-3) H 04/28/19 08:50 Ur Squamous Epith Cells Many per lpf (None-Few) H 04/28/19 08:50 Urine Bacteria Many per hpf (None-Few) H 04/28/19 08:50 Ur Culture Indicated? YES (NO) A 04/28/19 08:50 Consult Discharge Plan - Plan Referrals: Sylvester Boswell MD [Primary Care Provider] - Tracie Schreiber MD [Partnered Physician] - 06/29/19 11:30 am <Barber Durant - Last Filed: 04/28/19 19:19> Date of Encounter: 04/28/19 Time of Encounter: 19:17 Assessment and Plan (1) Dural sinus thrombosis Current Visit: Yes Status: Acute I have personally performed a [id number] assessment of the patient and have reviewed the PA/COATING TECHNICIAN note. My impressions are as follows: As mentioned the patient will likely require lifelong anticoagulation because of her underlying malignancies. I will defer management of her anticoagulation to her primary care provider. Otherwise she will follow up with Dr. Schreiber in the office upon discharge. I will reevaluate her at your request. Subjective Interval history: Chart was reviewed, patient was seen and examined independently. The case was discussed with the BECK TENDER. Since his evaluation this morning the patient has been seen and evaluated by hematology oncology. His impression that since she has had 2 different types of malignancies she is a lifelong risk for hypercoagulable state. She will therefore need lifelong anticoagulation therapy. Otherwise she has no evidence of symptomatic dural thrombosis. Objective - Constitutional Vitals: Temp Pulse Resp BP Pulse Ox 98.1 F 103 14 138/86 96 04/28/19 15:09 04/28/19 15:09 04/28/19 15:09 04/28/19 15:09 04/28/19 15:09 Exam: I have personally performed a [id number] assessment of the patient and have reviewed the PA/COATING TECHNICIAN note. My impressions are as follows: I agree with the neuro logic examination is documented above. Results - Laboratory Findings CBC and BMP: 04/28/19 05:43 04/28/19 05:43 Abnormal lab findings: Abnormal lab results Heparin Anti-Xa, Unfract 0.26 IU/mL (0.30-0.70) L 04/27/19 22:27 Glucose 112 mg/dL (70-105) H 04/28/19 05:43 Urine Clarity Cloudy (Clear) A 04/28/19 08:50 Urine Protein 30 mg/dL (Neg-Trace) H 04/28/19 08:50 Urine Blood Moderate (Negative) H 04/28/19 08:50 Urine Nitrite Positive (Negative) A 04/28/19 08:50 Ur Leukocyte Esterase Large (Negative) H 04/28/19 08:50 Urine Microscopic RBC 3-5 per hpf (0-3) H 04/28/19 08:50 Urine Microscopic WBC TNTC per hpf (0-3) H 04/28/19 08:50 Ur Squamous Epith Cells Many per lpf (None-Few) H 04/28/19 08:50 Urine Bacteria Many per hpf (None-Few) H 04/28/19 08:50 Ur Culture Indicated? YES (NO) A 04/28/19 08:50
--- NOTE | 2019-04-28 14:45 | Internal Med Progress Note ---
Hospitalist Progress Note - Encounter Date of Encounter: 04/28/19 Time of Encounter: 14:30 - Subjective Interval History: Patient was seen at bedside. Denies any chest pain, shortness of breath, dizziness, dysphagia, fever, chills, dysarthria. Pt is comfortable. No overnight events. - Exam Vitals: Temp Pulse Resp BP Pulse Ox 98.4 F 97 14 156/85 98 04/28/19 12:00 04/28/19 12:00 04/28/19 12:00 04/28/19 12:00 04/28/19 12:00 Exam: General: Alert and oriented, no physical distress, able to follow commands. HEENT: No thyromegaly, no lymphadenopathy, no discharge. Eyes: No discharge. Respiratory: Normal vesicular breathing, no added sounds, breathing equal in both sides. CVS: Normal heart sounds, no murmurs, no edema. Extremities: No peripheral edema, peripheral pulses intact. Lymph nodes: No lymphadenopathy Gastrointestinal: Soft, nontender abdomen, normal abdominal sounds. No distention noted. Genitourinary: No paravertebral tenderness. Neurological: Alert and oriented. Motor exam normal in lower extremites, sensations to light touch normal, plantar reflexes decreased on both sides, finger ot nose test normal, Cranial nerves II-XII intact. - Assessment and Plan (1) Dural sinus thrombosis Current Visit: Yes Status: Acute Assessment and Plan: - imaging studies consistent with left distal transverse and sigmoid sinus thrombosis. Neurology on board. Patient has been started on heparin drip, is being transitioned to Coumadin. Patient might be needing lifelong anticoagulation considering multiple myeloma. We will consult hematology/oncology for recommendations. No focal deficits noted. NIH/ neurological checks as per neurology recommendations. PT/OT -INR 1.0, dosing of coumadin as per pharmacy (2) Back pain Current Visit: Yes Status: Chronic Assessment and Plan: -Chronic in context of MM -On oxycodone -COntinue the pain regimne (3) Hypertension Current Visit: Yes Status: Chronic Assessment and Plan: -BP stable -COntinue clonidine, lisinopril (4) CVA (cerebral vascular accident) Current Visit: Yes Status: Acute Assessment and Plan: -Had a CVA 3 weeks back as evidnce by the MRI with some lower extremity residual weakness -No new findings on MRI today -COnt aspirin -Neuro on board -PT/OT (5) Multiple myeloma Current Visit: Yes Status: Acute Assessment and Plan: -F/u with the oncology (6) Anxiety Current Visit: No Status: Chronic Assessment and Plan: -Curretly looks calm -On ativan PRN for anxiety which we weill continue (7) Anticoagulated on Coumadin Current Visit: Yes Status: Acute Assessment and Plan: -Started on AC on coumadin -INR before starting was 0.9 -Was given 5mg PO in the ED -INR today is 1.0 -Will check INR tomorrow morning -Further coumadin dosing and adjustments as per pharmacy - Time Spent with Patient Total time spent is greater than 50% in coordination of care (as documented) at patient's floor/unit and/or counseling patient: Internal Medicine: Result - Labs CBC & Chem 7: 04/28/19 05:43 04/28/19 05:43 Labs: Short CBC 04/28/19 Range/Units 05:43 WBC 5.2 (4.3-11.1) K/mcL Hgb 14.1 (11.5-15.4) g/dL Hct 41.4 (35.3-44.9) % Plt Count 166 (140-400) K/mcL Neutrophils # 3.7 (1.6-8.9) K/mcL BMP 04/28/19 05:43 Sodium 139 Potassium 3.6 Chloride 103 Carbon Dioxide 25 BUN 13 Creatinine 0.77 Glucose 112 H Calcium 9.0 Urine 04/28/19 Range/Units 08:50 Urine Color Yellow (Yellow) Urine Clarity Cloudy A (Clear) Urine pH 6.0 (5.0-8.0) pH Units Ur Specific [place] 1.021 (1.010-1.025) Urine Protein 30 H (Neg-Trace) mg/dL Urine Glucose (UA) Normal (Normal) mg/dL - ABG Interpretation ABG results: PT/INR, D-dimer PT 11.1 Seconds (9.4-12.1) 04/28/19 05:43 Consult Discharge Plan - Plan Referrals: Sylvester Boswell MD [Primary Care Provider] - Tracie Schreiber MD [Partnered Physician] - 06/29/19 11:30 am (2) Back pain Qualifiers: Back pain location: low back pain Chronicity: chronic Back pain laterality: bilateral Sciatica presence: unspecified whether sciatica present Qualified Code(s): M54.5 - Low back pain; G89.29 - Other chronic pain (3) Hypertension Qualifiers: Hypertension type: essential hypertension Qualified Code(s): I10 - Essential (primary) hypertension (4) CVA (cerebral vascular accident) Qualifiers: CVA mechanism: unspecified Qualified Code(s): I63.9 - Cerebral infarction, unspecified (5) Multiple myeloma Qualifiers: Multiple myeloma remission status: unspecified Qualified Code(s): C90.00 - Multiple myeloma not having achieved remission
--- NOTE | 2019-04-28 17:22 | Oncology Inp Consult Note ---
<Rob Draper - Last Filed: 04/28/19 17:33> Date of Encounter: 04/28/19 - Data of Consult Requesting Physician: Ezekiel Antony Primary Care Provider: Sylvester Boswell MD Medications and Allergies Lidocaine/Prilocaine [Emla] 1 appl TP AD #30 gm 05/11/17 [Rx] Aspirin [Lo-Dose Aspirin EC] 81 mg PO DAILY 11/10/17 [History] hydroCHLOROthiazide [Hydrochlorothiazide] 25 mg PO DAILY 01/05/18 [History] cloNIDine HCl [CloNIDine HCl] 0.1 mg PO TID 02/03/18 [History] Lisinopril [Zestril] 40 mg PO DAILY 03/04/18 [History] Cetirizine HCl [24Hour Allergy] 10 mg PO DAILY 07/06/18 [History] Venlafaxine XR (24 HR) [Effexor Xr] 150 mg PO DAILY #90 cap.er.24h 08/03/18 [Rx] Diphenoxylate/Atropine [Lomotil 2.5 mg/0.025 mg] 2 each PO TID PRN 20 Days #120 tablet 10/11/18 [Rx] Ergocalciferol (VITAMIN D2) [Vitamin D2] 50,000 unit PO 2XW #24 capsule 11/05/18 [Rx] Oxycodone HCl [Roxybond] 5 mg PO Q6H PRN 20 Days #80 tablet.orl 12/09/18 [Rx] Acyclovir [Zovirax] 400 mg PO BID #180 tablet 12/21/18 [Rx] Potassium Chloride [K-Tab ER] 20 meq PO DAILY 12/21/18 [History] FLUoxetine HCl [Fluoxetine HCl] 40 mg PO BID #60 capsule 01/12/19 [Rx] LORazepam [Ativan] 0.5 mg PO Q8H PRN 30 Days #60 tablet 01/12/19 [Rx] Oxybutynin [Ditropan] 5 mg PO DAILY #30 tablet 01/12/19 [Rx] Prochlorperazine Maleate [Compazine] 10 mg PO Q6H PRN #30 tablet 01/12/19 [Rx] Allergy/AdvReac Type Severity Reaction Status Date / Time No Known Allergies Allergy Verified 04/28/19 17:28 Consult Discharge Plan - Plan Referrals: Sylvester Boswell MD [Primary Care Provider] - Tracie Schreiber MD [Partnered Physician] - 06/29/19 11:30 am Inpatient Charges Provider: Dr. Rick Draper Consult - Inpatient: [id number] - Attending Attestation I examined this patient and my medical decision-making was reviewed with the Advanced Practice Nurse. I agree with the documented findings, disposition and treatment plan as described except to the extent set forth below. 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 Imaging done shows a left distal transverse, dural sinus, and sigmoid sinus thromboses. She is currently on heparin gtt and being bridged to Coumadin for therapeutic anticoagulation. She will likely need lifelong therapeutic anticoagulation in light of her multiple thromboses found in the setting of two different malignancies. We will continue to follow along with you, thank you for the consult. <Galileo Mckeon Jr - Last Filed: 04/28/19 18:35> Date of Encounter: 04/28/19 Time of Encounter: 17:19 Assessment and Plan (1) Dural sinus thrombosis Status: Acute Assessment and plan: This is a 69 year old female patient of Dr Gamal Vaughn at [facility]. She has current diagnosis of multiple myeloma and history of breast cancer Current therapy: 1. Daratumumab initiated 12/21/2018. Transition to monthly therapy 04/06/2019 with Singulair. 2. Zometa q 6 months Treatment intent: Palliative Patient admitted for dural sinus thrombosis with CVA. Seen by Dr Schreiber of neurology. She will see him as outpatient in 2 months. Agree with his assessment of heparin transition to coumadin. Once medically stable, discharge and follow up with Dr Vaughn at [facility] as outpatient. Patient with a pre-scheduled appointment on 05/04/19 at 900am for next myeloma treatment. He can discuss anticoagulation at that time. Signing off (2) CVA (cerebral vascular accident) Status: Acute Qualifiers: CVA mechanism: unspecified Qualified Code(s): I63.9 - Cerebral infarction, unspecified - Data of Consult Patient: known to practice within the last 3 years Consult date: 04/28/19 Requesting Physician: Ezekiel Antony Primary Care Provider: Sylvester Boswell MD - Consult Narrative Reason for consult: dural sinus thrombus History of present illness: Diagnosis: 1. Lyles light chain multiple myeloma. ISS stage III. BM biopsy 03/19/17 with 20% kappa light chain restricted plasma cells. Lyles light chain 59, lambda 0.17 ratio 347. Myeloma FISH panel not assessed secondary to mishandling. Initiated VRD 03/19/17 with strict CR by restaging BM biopsy 06/21. 2. T5 compression fracture. Evaluatd by neurosurgery and no intervention recommended 3. History of stage I (T1bN0) grade 3 invasive ductal carcinoma of the right breast. ER/UT/ciz1xvq-. She completed lumpectomy with SNB 11/16/13 followed by APBRT and TC x 4 cycles. Prior therapy: 1. Adjuvant TC 12/23/13-02/24/14 2. APBRT 3. IVIg 4. VRD initiated 04/03/17-06/19/17. Achieved strict CR by BM biopsy 06/21 at [facility] 5. Revlimid maintenance 06/19/2017-10/11/2018, stopped secondary to diarrhea and fatigue/mild pregression Current therapy: 1. Daratumumab initiated 12/21/2018. Transition to monthly therapy 04/06/2019 with Singulair. 2. Zometa q 6 months Treatment intent: Palliative Past Med Surg Social Fam HX - Past Medical History Medical history: cancer, hyperlipidemia, hypertension Additional medical history: Right Breast CA. Multiple Myeloma. Radiation/Chemo [place] Psychiatric history: depression - Past Surgical History Surgical History: orthopedic, other, other Additional surgical history: Back surgery, meniscus tear, shoulder spur removal, pins placed - Social History Smoking Status: Never smoker Smokeless Tobacco Status: No Alcohol use: none Drug use: none - Family History Brother Hx Family Cancer: Yes (prostate) Constitutional: Present: fatigue Oncology - Exam - Constitutional General appearance: cooperative, no acute distress - Head Head exam: Present: normal inspection, normocephalic - Eye Pupils: Present: PERRL - ENT ENT exam: Present: mucous membranes moist - Neck Neck exam: Present: full ROM - Respiratory Respiratory exam: Present: CTAB - Cardiovascular Cardiovascular exam: Present: RRR - GI/Abdominal GI/Abdominal exam: Present: normal bowel sounds, soft - Extremities Exam Extremities exam: Present: full ROM, normal inspection - Neurological Exam Neurological exam: Present: alert, oriented X3, no focal deficits - Psychiatric Psychiatric exam: Present: normal affect, normal mood - Skin Skin exam: Present: dry, intact, warm Oncology Inpatient Results Labs: Laboratory Last Values WBC 5.2 K/mcL (4.3-11.1) 04/28/19 05:43 RBC 4.65 M/mcL (3.82-4.97) 04/28/19 05:43 Hgb 14.1 g/dL (11.5-15.4) 04/28/19 05:43 Hct 41.4 % (35.3-44.9) 04/28/19 05:43 MCV 89.0 fL (83.0-100.0) 04/28/19 05:43 MCH 30.3 pg (28.0-33.3) 04/28/19 05:43 MCHC 34.1 g/dL (31.6-35.5) 04/28/19 05:43 RDW 12.2 % (11.5-14.5) 04/28/19 05:43 Plt Count 166 K/mcL (140-400) 04/28/19 05:43 MPV 9.9 fL (9.4-12.4) 04/28/19 05:43 Immature Gran % 0.2 % (0-4) 04/28/19 05:43 Seg Neutrophils % 69.6 % 04/28/19 05:43 Lymphocytes % 21.6 % 04/28/19 05:43 Monocytes % 7.4 % 04/28/19 05:43 Eosinophils % 0.8 % 04/28/19 05:43 Basophils % 0.4 % 04/28/19 05:43 Neutrophils # 3.7 K/mcL (1.6-8.9) 04/28/19 05:43 Lymphocytes # 1.1 K/mcL (0.6-4.6) 04/28/19 05:43 Monocytes # 0.4 K/mcL (0.0-1.3) 04/28/19 05:43 Eosinophils # 0.0 K/mcL (0.0-0.6) 04/28/19 05:43 Basophils # 0.0 K/mcL (0.0-0.2) 04/28/19 05:43 PT 11.1 Seconds (9.4-12.1) 04/28/19 05:43 INR 1.0 04/28/19 05:43 APTT 29.0 Seconds (26.0-36.0) 04/27/19 10:00 Heparin Anti-Xa, Unfract 0.38 IU/mL (0.30-0.70) 04/28/19 12:06 Sodium 139 mEq/L (136-145) 04/28/19 05:43 Potassium 3.6 mEq/L (3.5-5.1) 04/28/19 05:43 Chloride 103 mEq/L (98-107) 04/28/19 05:43 Carbon Dioxide 25 mEq/L (23-29) 04/28/19 05:43 BUN 13 mg/dL (8-23) 04/28/19 05:43 Creatinine 0.77 mg/dL (0.60-1.20) 04/28/19 05:43 Est GFR ( Amer) > 60 (> 60) 04/28/19 05:43 Est GFR (Non-Af Amer) > 60 (> 60) 04/28/19 05:43 BUN/Creatinine Ratio 17 (6-26) 04/28/19 05:43 Glucose 112 mg/dL (70-105) H 04/28/19 05:43 Calculated Osmolality 289 (280-300) 04/28/19 05:43 Calcium 9.0 mg/dL (8.6-10.3) 04/28/19 05:43 Urine Color Yellow (Yellow) 04/28/19 08:50 Urine Clarity Cloudy (Clear) A 04/28/19 08:50 Urine pH 6.0 pH Units (5.0-8.0) 04/28/19 08:50 Ur Specific [place] 1.021 (1.010-1.025) 04/28/19 08:50 Urine Protein 30 mg/dL (Neg-Trace) H 04/28/19 08:50 Urine Glucose (UA) Normal mg/dL (Normal) 04/28/19 08:50 Urine Ketones Negative mg/dL (Negative) 04/28/19 08:50 Urine Blood Moderate (Negative) H 04/28/19 08:50 Urine Nitrite Positive (Negative) A 04/28/19 08:50 Urine Bilirubin Negative (Negative) 04/28/19 08:50 Urine Urobilinogen Normal mg/dL (Normal) 04/28/19 08:50 Ur Leukocyte Esterase Large (Negative) H 04/28/19 08:50 Urine Microscopic RBC 3-5 per hpf (0-3) H 04/28/19 08:50 Urine Microscopic WBC TNTC per hpf (0-3) H 04/28/19 08:50 Ur Squamous Epith Cells Many per lpf (None-Few) H 04/28/19 08:50 Ur Transition Epith Cell Few per hpf (None-Few) 04/28/19 08:50 Ur Renal Epithelial Cell Few per hpf (None-Few) 04/28/19 08:50 Urine Bacteria Many per hpf (None-Few) H 04/28/19 08:50 Hyaline Casts None Seen per lpf (None-Few) 04/28/19 08:50 Ur Culture Indicated? YES (NO) A 04/28/19 08:50
[2019-04-28] MEDS ORDERED: *HR* Warfarin 5 MG TABLET PO ONE (18:00)
[2019-04-29] MEDS: Venlafaxine XR (24 HR) 150 MG CAP.ER.24H PO SCH (07:37)
[2019-04-29] MEDS: hydroCHLOROthiazide 25 MG TABLET PO SCH (07:37)
[2019-04-29] MEDS: Loratadine 10 MG TABLET PO SCH (07:37)
[2019-04-29] MEDS: Aspirin Enteric Coated 81 MG Tablet PO SCH (07:37)
[2019-04-29] MEDS: FLUoxetine 20 MG CAPSULE PO SCH ×2 (07:37→19:43)
[2019-04-29] MEDS: Lisinopril 20 MG TABLET PO SCH (07:37)
[2019-04-29] MEDS: Acyclovir 200 MG CAPSULE PO SCH ×2 (07:38→19:44)
[2019-04-29] MEDS: *HR* LORazepam 0.5 MG TABLET PO PRN (07:38)
[2019-04-29] MEDS: cloNIDine HCl 0.1 MG TABLET PO SCH ×3 (07:38→19:44)
[2019-04-29] MEDS: Heparin 25,000 UNIT/250 ML D5W 25,000 UNIT/250 ML IV.SOLN IVC SCH (07:38)
--- NOTE | 2019-04-29 10:53 | Internal Med Progress Note ---
Hospitalist Progress Note - Encounter Date of Encounter: 04/29/19 Time of Encounter: 10:15 - Subjective Interval History: Seen at bedside, Denies dizziness, confusion, focal deficits, chest pain, SOB, fever, chills, dysphagia or dysartria No other oevernight events. - Exam Vitals: Temp Pulse Resp BP Pulse Ox 98.1 F 82 12 143/76 96 04/29/19 07:19 04/29/19 07:19 04/29/19 07:19 04/29/19 07:04/29/19 07:19 Exam: General: Alert and oriented, no physical distress, able to follow commands. Respiratory: Normal vesicular breathing, no added sounds, breathing equal in both sides. CVS: Normal heart sounds, no murmurs, no edema. Extremities: No peripheral edema, peripheral pulses intact. Gastrointestinal: Soft, nontender abdomen, normal abdominal sounds. No distention noted. Genitourinary: No paravertebral tenderness. Neurological: Alert and oriented. Motor exam normal in lower extremites, sensations to light touch normal, plantar reflexes decreased on both sides, finger ot nose test normal - Assessment and Plan (1) Dural sinus thrombosis Current Visit: Yes Status: Acute Assessment and Plan: - imaging studies consistent with left distal transverse and sigmoid sinus thrombosis. Neurology on board. Patient has been started on heparin drip, is being transitioned to Coumadin. Anti Xa levels within desired range Patient will be needing lifelong anticoagulation considering multiple myeloma. No focal deficits noted. NIH/ neurological checks as per neurology recommendations. -INR still 1.0, dosing of coumadin as per pharmacy (2) Back pain Current Visit: No Status: Chronic Assessment and Plan: -Chronic in context of MM -On oxycodone -COntinue the pain regimne (3) Hypertension Current Visit: No Status: Chronic Assessment and Plan: -BP stable -COntinue clonidine, lisinopril (4) CVA (cerebral vascular accident) Current Visit: Yes Status: Acute Assessment and Plan: -Had a CVA 3 weeks back as evidnce by the MRI with some lower extremity residual weakness -No new findings on MRI doen during this admission -COnt aspirin -Neuro on board -PT/OT (5) Multiple myeloma Current Visit: Yes Status: Acute Assessment and Plan: -F/u with the oncology (6) Anxiety Current Visit: No Status: Chronic Assessment and Plan: -Curretly looks calm -On ativan PRN for anxiety (7) Anticoagulated on Coumadin Current Visit: No Status: Acute Assessment and Plan: -Started on AC on coumadin -INR before starting was 0.9 -Was given 5mg PO in the ED and 5mg yesterday -INR today is 1.0 -Will check INR tomorrow morning -Further coumadin dosing and adjustments as per pharmacy - Time Spent with Patient Total time spent is greater than 50% in coordination of care (as documented) at patient's floor/unit and/or counseling patient: Internal Medicine: Result - Labs CBC & Chem 7: 04/28/19 05:43 04/28/19 05:43 - ABG Interpretation ABG results: PT/INR, D-dimer PT 11.0 Seconds (9.4-12.1) 04/29/19 04:33 Consult Discharge Plan - Plan Referrals: Sylvester Boswell MD [Primary Care Provider] - Tracie Schreiber MD [Partnered Physician] - 06/29/19 11:30 am (2) Back pain Qualifiers: Back pain location: low back pain Chronicity: chronic Back pain laterality: bilateral Sciatica presence: unspecified whether sciatica present Qualified Code(s): M54.5 - Low back pain; G89.29 - Other chronic pain (3) Hypertension Qualifiers: Hypertension type: essential hypertension Qualified Code(s): I10 - Essential (primary) hypertension (4) CVA (cerebral vascular accident) Qualifiers: CVA mechanism: unspecified Qualified Code(s): I63.9 - Cerebral infarction, unspecified (5) Multiple myeloma Qualifiers: Multiple myeloma remission status: unspecified Qualified Code(s): C90.00 - Multiple myeloma not having achieved remission
[2019-04-29] MEDS: *HR* Heparin 5,000 UNIT/ML VIAL IVP PRN (15:25)
[2019-04-29] MEDS ORDERED: *HR* Warfarin 7.5 MG TABLET PO ONE (18:00)
[2019-04-30 03:11] LABS: Prothrombin Time 11.9 Seconds (9.4-12.1)
[2019-04-30] MEDS: Heparin 25,000 UNIT/250 ML D5W 25,000 UNIT/250 ML IV.SOLN IVC SCH ×2 (04:37→23:24)
[2019-04-30] MEDS: Venlafaxine XR (24 HR) 150 MG CAP.ER.24H PO SCH (08:44)
[2019-04-30] MEDS: *HR* LORazepam 0.5 MG TABLET PO PRN (08:45)
[2019-04-30] MEDS: FLUoxetine 20 MG CAPSULE PO SCH ×2 (08:45→20:58)
[2019-04-30] MEDS: Acyclovir 200 MG CAPSULE PO SCH ×2 (08:45→20:58)
[2019-04-30] MEDS: Lisinopril 20 MG TABLET PO SCH (08:45)
[2019-04-30] MEDS: Loratadine 10 MG TABLET PO SCH (08:45)
[2019-04-30] MEDS: Aspirin Enteric Coated 81 MG Tablet PO SCH (08:45)
[2019-04-30] MEDS: cloNIDine HCl 0.1 MG TABLET PO SCH ×3 (08:46→23:23)
[2019-04-30] MEDS: hydroCHLOROthiazide 25 MG TABLET PO SCH (08:46)
--- NOTE | 2019-04-30 12:09 | Internal Med Progress Note ---
Hospitalist Progress Note - Encounter Date of Encounter: 04/30/19 Time of Encounter: 09:00 - Subjective Interval History: Seen at bedside. Denies dysphagia, dysarthria, double vision. Patient has dysuria a few days back and getting culture were obtained. Cultures showing Escherichia coli. Patient endorses increased frequency, denies dysuria today. No other overnight events. - Exam Vitals: Temp Pulse Resp BP Pulse Ox 97.9 F 92 16 154/75 96 04/30/19 07:14 04/30/19 07:14 04/30/19 07:14 04/30/19 07:14 04/30/19 04:10 Exam: General: Alert and oriented, no physical distress, able to follow commands. Respiratory: Normal vesicular breathing, no added sounds, breathing equal in both sides. CVS: Normal heart sounds, no murmurs, no edema. Extremities: No peripheral edema, peripheral pulses intact. Gastrointestinal: Soft, nontender abdomen, normal abdominal sounds. No distention noted. Genitourinary: No paravertebral tenderness. Neurological: Alert and oriented. Motor exam normal in lower extremites, sensations to light touch normal, plantar reflexes decreased on both sides, finger ot nose test normal - Assessment and Plan (1) Dural sinus thrombosis Current Visit: Yes Status: Acute Assessment and Plan: - imaging studies consistent with left distal transverse and sigmoid sinus thrombosis. Neurology on board. Patient has been started on heparin drip, is being transitioned to Coumadin. Anti Xa levels within desired range Patient will be needing lifelong anticoagulation considering multiple myeloma. No focal deficits noted. -INR still 1.0, dosing of coumadin as per pharmacy (2) Back pain Current Visit: No Status: Chronic Assessment and Plan: -Chronic in context of MM -On oxycodone -COntinue the pain regimne (3) Hypertension Current Visit: No Status: Chronic Assessment and Plan: -BP stable -COntinue clonidine, lisinopril (4) CVA (cerebral vascular accident) Current Visit: Yes Status: Acute Assessment and Plan: -Had a CVA 3 weeks back as evidnce by the MRI with some lower extremity residual weakness -No new findings on MRI doen during this admission -COnt aspirin -Neuro on board -PT/OT (5) Multiple myeloma Current Visit: Yes Status: Acute Assessment and Plan: -F/u with the oncology (6) Anxiety Current Visit: No Status: Chronic Assessment and Plan: -Curretly looks calm -On ativan PRN for anxiety (7) Anticoagulated on Coumadin Current Visit: No Status: Acute Assessment and Plan: -Started on AC on coumadin -INR before starting was 0.9 -HAs been taking 7.5 mg PO daily -INR today is 1.0 -Will check INR tomorrow morning -Further coumadin dosing and adjustments as per pharmacy (8) UTI (urinary tract infection) Current Visit: Yes Status: Acute Assessment and Plan: -Noted to have E. COli, sensitivites noted -Will start on kelfex for 5 days - Time Spent with Patient Total time spent is greater than 50% in coordination of care (as documented) at patient's floor/unit and/or counseling patient: Internal Medicine: Result - Labs CBC & Chem 7: 04/28/19 05:43 04/28/19 05:43 - ABG Interpretation ABG results: PT/INR, D-dimer PT 11.9 Seconds (9.4-12.1) 04/30/19 02:48 Consult Discharge Plan - Plan Referrals: Sylvester Boswell MD [Primary Care Provider] - Tracie Schreiber MD [Partnered Physician] - 06/29/19 11:30 am (2) Back pain Qualifiers: Back pain location: low back pain Chronicity: chronic Back pain laterality: bilateral Sciatica presence: unspecified whether sciatica present Qualified Code(s): M54.5 - Low back pain; G89.29 - Other chronic pain (3) Hypertension Qualifiers: Hypertension type: essential hypertension Qualified Code(s): I10 - Essential (primary) hypertension (4) CVA (cerebral vascular accident) Qualifiers: CVA mechanism: unspecified Qualified Code(s): I63.9 - Cerebral infarction, unspecified (5) Multiple myeloma Qualifiers: Multiple myeloma remission status: unspecified Qualified Code(s): C90.00 - Multiple myeloma not having achieved remission (8) UTI (urinary tract infection) Qualifiers: Urinary tract infection type: acute cystitis Hematuria presence: without hematuria Qualified Code(s): N30.00 - Acute cystitis without hematuria
[2019-04-30] MEDS ORDERED: *HR* Warfarin 7.5 MG TABLET PO ONE (18:00)
[2019-04-30] MEDS: cephALEXin 500 MG CAPSULE PO SCH ×3 (18:16→20:58)
[2019-05-01 03:44] LABS: Heparin anti-factor XA UFH 0.41 IU/mL (0.30-0.70)
[2019-05-01 03:45] LABS: INR 1.3; Prothrombin Time 14.2 Seconds (9.4-12.1)
[2019-05-01] MEDS: *HR* LORazepam 0.5 MG TABLET PO PRN (08:25)
[2019-05-01] MEDS: Loratadine 10 MG TABLET PO SCH (08:25)
[2019-05-01] MEDS: Venlafaxine XR (24 HR) 150 MG CAP.ER.24H PO SCH (08:25)
[2019-05-01] MEDS: cloNIDine HCl 0.1 MG TABLET PO SCH ×3 (08:25→20:26)
[2019-05-01] MEDS: Lisinopril 20 MG TABLET PO SCH (08:25)
[2019-05-01] MEDS: cephALEXin 500 MG CAPSULE PO SCH ×4 (08:25→20:26)
[2019-05-01] MEDS: Aspirin Enteric Coated 81 MG Tablet PO SCH (08:26)
[2019-05-01] MEDS: FLUoxetine 20 MG CAPSULE PO SCH ×2 (08:26→20:26)
[2019-05-01] MEDS: Acyclovir 200 MG CAPSULE PO SCH ×2 (08:26→20:26)
[2019-05-01] MEDS: hydroCHLOROthiazide 25 MG TABLET PO SCH (08:27)
--- NOTE | 2019-05-01 13:06 | Internal Med Progress Note ---
Hospitalist Progress Note - Encounter Date of Encounter: 05/01/19 Time of Encounter: 09:00 - Subjective Interval History: Seen at bedside. Denies dysphagia, dysarthria, double vision. Mentions improvemtn in urinary frequency. Deneis dysuria, fever, chills. No other overnight events. - Exam Vitals: Temp Pulse Resp BP Pulse Ox 98.4 F 89 16 140/78 97 05/01/19 07:10 05/01/19 07:10 05/01/19 07:10 05/01/19 07:10 05/01/19 04:46 Exam: General: Alert and oriented, no physical distress, able to follow commands. Respiratory: Normal vesicular breathing, no added sounds, breathing equal in both sides. CVS: Normal heart sounds, no murmurs, no edema. Extremities: No peripheral edema, peripheral pulses intact. Gastrointestinal: Soft, nontender abdomen, normal abdominal sounds. No distention noted. Genitourinary: No paravertebral tenderness. Neurological: Alert and oriented. Motor exam normal in lower extremites, sensations to light touch normal, plantar reflexes decreased on both sides, finger ot nose test normal - Assessment and Plan (1) Dural sinus thrombosis Current Visit: Yes Status: Acute Assessment and Plan: - imaging studies consistent with left distal transverse and sigmoid sinus thrombosis. Neurology on board. Patient has been started on heparin drip, is being transitioned to Coumadin. Anti Xa levels within desired range Patient will be needing lifelong anticoagulation considering multiple myeloma. No focal deficits noted. -INR rises to 1.3, dosing of coumadin as per pharmacy (2) Back pain Current Visit: No Status: Chronic Assessment and Plan: -Chronic in context of MM -On oxycodone -COntinue the pain regimne (3) Hypertension Current Visit: No Status: Chronic Assessment and Plan: -BP within reasonable limits -COntinue clonidine, lisinopril (4) CVA (cerebral vascular accident) Current Visit: Yes Status: Acute Assessment and Plan: -Had a CVA 3 weeks back as evidnce by the MRI with some lower extremity residual weakness -No new findings on MRI doen during this admission -COnt aspirin -Neuro on board -PT/OT (5) Multiple myeloma Current Visit: Yes Status: Acute Assessment and Plan: -F/u with the oncology (6) Anxiety Current Visit: No Status: Chronic Assessment and Plan: -Curretly looks calm -On ativan PRN for anxiety (7) Anticoagulated on Coumadin Current Visit: No Status: Acute Assessment and Plan: -Started on AC on coumadin -INR before starting was 0.9 -HAs been taking 7.5 mg PO daily -INR today is 1.3 -Will check INR tomorrow morning -Further coumadin dosing and adjustments as per pharmacy (8) UTI (urinary tract infection) Current Visit: Yes Status: Acute Assessment and Plan: -Noted to have E. COli, sensitivites noted -On keflex, o e continued for 5 days - Time Spent with Patient Total time spent is greater than 50% in coordination of care (as documented) at patient's floor/unit and/or counseling patient: Internal Medicine: Result - Labs CBC & Chem 7: 04/28/19 05:43 04/28/19 05:43 - ABG Interpretation ABG results: PT/INR, D-dimer PT 14.2 Seconds (9.4-12.1) H 05/01/19 03:14 Consult Discharge Plan - Plan Referrals: Sylvester Boswell MD [Primary Care Provider] - Tracie Schreiber MD [Partnered Physician] - 06/29/19 11:30 am (2) Back pain Qualifiers: Back pain location: low back pain Chronicity: chronic Back pain laterality: bilateral Sciatica presence: unspecified whether sciatica present Qualified Code(s): M54.5 - Low back pain; G89.29 - Other chronic pain (3) Hypertension Qualifiers: Hypertension type: essential hypertension Qualified Code(s): I10 - Essential (primary) hypertension (4) CVA (cerebral vascular accident) Qualifiers: CVA mechanism: unspecified Qualified Code(s): I63.9 - Cerebral infarction, un specified (5) Multiple myeloma Qualifiers: Multiple myeloma remission status: unspecified Qualified Code(s): C90.00 - Multiple myeloma not having achieved remission (8) UTI (urinary tract infection) Qualifiers: Urinary tract infection type: acute cystitis Hematuria presence: without he maturia Qualified Code(s): N30.00 - Acute cystitis without hematuria
[2019-05-01] MEDS ORDERED: *HR* Warfarin 7.5 MG TABLET PO ONE (18:00)
[2019-05-01] MEDS: Heparin 25,000 UNIT/250 ML D5W 25,000 UNIT/250 ML IV.SOLN IVC SCH (19:24)
[2019-05-02 03:39] LABS: INR 1.4
[2019-05-02] MEDS: Aspirin Enteric Coated 81 MG Tablet PO SCH (09:16)
[2019-05-02] MEDS: Lisinopril 20 MG TABLET PO SCH (09:16)
[2019-05-02] MEDS: cephALEXin 500 MG CAPSULE PO SCH ×4 (09:16→23:05)
[2019-05-02] MEDS: cloNIDine HCl 0.1 MG TABLET PO SCH ×3 (09:17→20:30)
[2019-05-02] MEDS: hydroCHLOROthiazide 25 MG TABLET PO SCH (09:17)
[2019-05-02] MEDS: Venlafaxine XR (24 HR) 150 MG CAP.ER.24H PO SCH (09:17)
[2019-05-02] MEDS: FLUoxetine 20 MG CAPSULE PO SCH ×2 (09:17→20:30)
[2019-05-02] MEDS: Loratadine 10 MG TABLET PO SCH (09:17)
[2019-05-02] MEDS: Acyclovir 200 MG CAPSULE PO SCH ×2 (09:18→20:30)
--- NOTE | 2019-05-02 12:13 | Internal Med Progress Note ---
Hospitalist Progress Note - Encounter Date of Encounter: 05/02/19 Time of Encounter: 11:00 - Subjective Interval History: Seen at bedside, no acute compalitns today. HAs been doing okay. Dneies dysphagia, dysarthria, double vision. - Exam Vitals: Temp Pulse Resp BP Pulse Ox 98.3 F 91 16 137/78 96 05/02/19 12:05 05/02/19 12:05 05/02/19 12:05 05/02/19 12:05 05/02/19 12:05 Exam: General: Alert and oriented, no physical distress, able to follow commands. Respiratory: Normal vesicular breathing, no added sounds, breathing equal in both sides. CVS: Normal heart sounds, no murmurs, no edema. Extremities: No peripheral edema, peripheral pulses intact. Gastrointestinal: Soft, nontender abdomen, normal abdominal sounds. No distention noted. Genitourinary: No paravertebral tenderness. Neurological: Alert and oriented. Motor exam normal in lower extremites, sensations to light touch normal, plantar reflexes decreased on both sides, finger ot nose test normal - Assessment and Plan (1) Dural sinus thrombosis Current Visit: Yes Status: Acute Assessment and Plan: - imaging studies consistent with left distal transverse and sigmoid sinus thrombosis. Neurology on board. Patient has been started on heparin drip, is being transitioned to Coumadin. Anti Xa levels within desired range Patient will be needing lifelong anticoagulation considering multiple myeloma. No focal deficits noted. -INR rises to 1.4, dosing of coumadin as per pharmacy (2) Back pain Current Visit: No Status: Chronic Assessment and Plan: -Chronic in context of MM -On oxycodone -COntinue the pain regimne (3) Hypertension Current Visit: No Status: Chronic Assessment and Plan: -BP slightly on he higher side in morning -COntinue clonidine, lisinopril (4) CVA (cerebral vascular accident) Current Visit: Yes Status: Acute Assessment and Plan: -Had a CVA 3 weeks back as evidnce by the MRI with some lower extremity residual weakness -No new findings on MRI doen during this admission -COnt aspirin -Neuro on board -PT/OT (5) Multiple myeloma Current Visit: Yes Status: Acute Assessment and Plan: -F/u with the oncology (6) Anxiety Current Visit: No Status: Chronic Assessment and Plan: -Curretly looks calm -On ativan PRN for anxiety (7) Anticoagulated on Coumadin Current Visit: No Status: Acute Assessment and Plan: -Started on AC on coumadin -INR before starting was 0.9 -HAs been taking 7.5 mg PO daily -INR today is 1.4 -Will check INR tomorrow morning -Further coumadin dosing and adjustments as per pharmacy (8) UTI (urinary tract infection) Current Visit: Yes Status: Acute - Time Spent with Patient Total time spent is greater than 50% in coordination of care (as documented) at patient's floor/unit and/or counseling patient: Internal Medicine: Result - Labs CBC & Chem 7: 04/28/19 05:43 04/28/19 05:43 - ABG Interpretation ABG results: PT/INR, D-dimer PT 16.0 Seconds (9.4-12.1) H 05/02/19 03:20 Consult Discharge Plan - Plan Referrals: Sylvester Boswell MD [Primary Care Provider] - Tracie Schreiber MD [Partnered Physician] - 06/29/19 11:30 am (2) Back pain Qualifiers: Back pain location: low back pain Chronicity: chronic Back pain laterality: bilateral Sciatica presence: unspecified whether sciatica present Qualified Code(s): M54.5 - Low back pain; G89.29 - Other chronic pain (3) Hypertension Qualifiers: Hypertension type: essential hypertension Qualified Code(s): I10 - Essential (primary) hypertension (4) CVA (cerebral vascular accident) Qualifiers: CVA mechanism: unspecified Qualified Code(s): I63.9 - Cerebral infarction, unspecified (5) Multiple myeloma Qualifiers: Multiple myeloma remission status: unspecified Qualified Code(s): C90.00 - Multiple myeloma not having achieved remission (8) UTI (urinary tract infection) Qualifiers: Urinary tract infection type: acute cystitis Hematuria presence: without hematuria Qualified Code(s): N30.00 - Acute cystitis without hematuria
[2019-05-02] MEDS: Heparin 25,000 UNIT/250 ML D5W 25,000 UNIT/250 ML IV.SOLN IVC SCH (15:14)
[2019-05-02] MEDS ORDERED: *HR* Warfarin 10 MG TABLET PO ONE (18:00)
[2019-05-02] MEDS ORDERED: Simethicone 80 MG TAB.CHEW PO PRN (21:05)
[2019-05-03 05:04] LABS: Basophils % 0.6 %; Eosinophils % 1.2 %; Hematocrit 41.2 % (35.3-44.9); Hemoglobin 13.8 g/dL (11.5-15.4); Immature Granulocytes % 0.6 % (0-4); Lymphocytes % 28.9 %; Mean Corpuscular HGB Conc 33.5 g/dL (31.6-35.5); Mean Corpuscular Hemoglobin 29.7 pg (28.0-33.3); Mean Corpuscular Volume 88.6 fL (83.0-100.0); Mean Platelet Volume 10.1 fL (9.4-12.4); Monocytes # 0.3 K/mcL (0.0-1.3); Monocytes % 9.5 %; Platelet Count 179 K/mcL (140-400); Red Blood Count 4.65 M/mcL (3.82-4.97); Red Cell Distribution Width 12.5 % (11.5-14.5); Segmented Neutrophils % 59.2 %; White Blood Count 3.4 K/mcL (4.3-11.1)
[2019-05-03 05:11] LABS: INR 1.8; Prothrombin Time 20.6 Seconds (9.4-12.1)
[2019-05-03] MEDS: Aspirin Enteric Coated 81 MG Tablet PO SCH (07:50)
[2019-05-03] MEDS: Venlafaxine XR (24 HR) 150 MG CAP.ER.24H PO SCH (07:50)
[2019-05-03] MEDS: cloNIDine HCl 0.1 MG TABLET PO SCH ×3 (07:50→20:40)
[2019-05-03] MEDS: cephALEXin 500 MG CAPSULE PO SCH ×4 (07:50→20:40)
[2019-05-03] MEDS: FLUoxetine 20 MG CAPSULE PO SCH ×2 (07:50→20:40)
[2019-05-03] MEDS: Loratadine 10 MG TABLET PO SCH (07:50)
[2019-05-03] MEDS: Acyclovir 200 MG CAPSULE PO SCH ×2 (07:50→20:40)
[2019-05-03] MEDS: Lisinopril 20 MG TABLET PO SCH (07:50)
[2019-05-03] MEDS: hydroCHLOROthiazide 25 MG TABLET PO SCH (07:50)
[2019-05-03] MEDS: Heparin 25,000 UNIT/250 ML D5W 25,000 UNIT/250 ML IV.SOLN IVC SCH (10:11)
--- NOTE | 2019-05-03 13:45 | Internal Med Progress Note ---
Hospitalist Progress Note - Encounter Date of Encounter: 05/03/19 Time of Encounter: 10:00 - Subjective Interval History: Seen at bedside, no acute compalitns today. HAs been doing okay. Dneies dysphagia, dysarthria, double vision. Deneis dysuria or increased frequency - Exam Vitals: Temp Pulse Resp BP Pulse Ox 97.6 F 93 14 152/79 98 05/03/19 06:56 05/03/19 06:56 05/03/19 06:56 05/03/19 06:56 05/03/19 06:56 Exam: General: Alert and oriented, no physical distress, able to follow commands. Respiratory: Normal vesicular breathing, no added sounds, breathing equal in both sides. CVS: Normal heart sounds, no murmurs, no edema. Extremities: No peripheral edema, peripheral pulses intact. Gastrointestinal: Soft, nontender abdomen, normal abdominal sounds. No distention noted. Genitourinary: No paravertebral tenderness. Neurological: Alert and oriented. Motor exam normal in lower extremites, sensations to light touch normal, plantar reflexes decreased on both sides, finger ot nose test normal - Assessment and Plan (1) Dural sinus thrombosis Current Visit: Yes Status: Acute Assessment and Plan: - imaging studies consistent with left distal transverse and sigmoid sinus thrombosis. Neurology on board. Patient has been started on heparin drip, is being transitioned to Coumadin. Anti Xa levels within desired range Patient will be needing lifelong anticoagulation considering multiple myeloma. No focal deficits noted. -INR rises to 1.8, dosing of coumadin as per pharmacy (2) Back pain Current Visit: No Status: Chronic Assessment and Plan: -Chronic in context of MM -On oxycodone -COntinue the pain regimne (3) Hypertension Current Visit: No Status: Chronic Assessment and Plan: -BP slightly on he higher side in morning -COntinue clonidine, lisinopril (4) CVA (cerebral vascular accident) Current Visit: Yes Status: Acute Assessment and Plan: -Had a CVA 3 weeks back as evidnce by the MRI with some lower extremity residual weakness -No new findings on MRI doen during this admission -COnt aspirin (5) Multiple myeloma Current Visit: Yes Status: Acute Assessment and Plan: -F/u with the oncology as outpt (6) Anxiety Current Visit: No Status: Chronic Assessment and Plan: -Curretly looks calm -On ativan PRN for anxiety (7) Anticoagulated on Coumadin Current Visit: No Status: Acute Assessment and Plan: -Started on AC on coumadin -INR before starting was 0.9 -HAs been taking 7.5 mg PO daily -INR today is 1.8 -Will check INR tomorrow morning -Further coumadin dosing and adjustments as per pharmacy -WIll call pharmacy to dsicuss the dose pf coumadin prior to discharge (8) UTI (urinary tract infection) Current Visit: Yes Status: Acute Assessment and Plan: -Noted to have E. COli, sensitivites noted -On keflex, day 4, prefer to cont for 5 days - Time Spent with Patient Total time spent is greater than 50% in coordination of care (as documented) at patient's floor/unit and/or counseling patient: Internal Medicine: Result - Labs CBC & Chem 7: 05/03/19 03:58 04/28/19 05:43 Labs: Short CBC 05/03/19 Range/Units 03:58 WBC 3.4 L (4.3-11.1) K/mcL Hgb 13.8 (11.5-15.4) g/dL Hct 41.2 (35.3-44.9) % Plt Count 179 (140-400) K/mcL Neutrophils # 2.0 (1.6-8.9) K/mcL - ABG Interpretation ABG results: PT/INR, D-dimer PT 20.6 Seconds (9.4-12.1) H 05/03/19 03:58 Consult Discharge Plan - Plan Referrals: Sylvester Boswell MD [Primary Care Provider] - Tracie Schreiber MD [Partnered Physician] - 06/29/19 11:30 am (2) Back pain Qualifiers: Back pain location: low back pain Chronicity: chronic Back pain laterality: bilateral Sciatica presence: unspecified whether sciatica present Qualified Code(s): M54.5 - Low back pain; G89.29 - Other chronic pain (3) Hypertension Qualifiers: Hypertension type: essential hypertension Qualified Code(s): I10 - Essential (primary) hypertension (4) CVA (cerebral vascular accident) Qualifiers: CVA mechanism: unspecified Qualified Code(s): I63.9 - Cerebral infarction, unspecified (5) Multiple myeloma Qualifiers: Multiple myeloma remission status: unspecified Qualified Code(s): C90.00 - Multiple myeloma not having achieved remission (8) UTI (urinary tract infection) Qualifiers: Urinary tract infection type: acute cystitis Hematuria presence: without hematuria Qualified Code(s): N30.00 - Acute cystitis without hematuria
[2019-05-03] MEDS ORDERED: *HR* Warfarin 10 MG TABLET PO ONE (18:00)
[2019-05-04] MEDS: Heparin 25,000 UNIT/250 ML D5W 25,000 UNIT/250 ML IV.SOLN IVC SCH (04:56)
[2019-05-04 06:15] LABS: Hematocrit 41.6 % (35.3-44.9); Hemoglobin 13.9 g/dL (11.5-15.4); Mean Corpuscular HGB Conc 33.4 g/dL (31.6-35.5); Mean Corpuscular Hemoglobin 29.3 pg (28.0-33.3); Mean Corpuscular Volume 87.8 fL (83.0-100.0); Mean Platelet Volume 9.5 fL (9.4-12.4); Platelet Count 161 K/mcL (140-400); Red Blood Count 4.74 M/mcL (3.82-4.97); Red Cell Distribution Width 12.5 % (11.5-14.5); White Blood Count 3.8 K/mcL (4.3-11.1)
[2019-05-04 06:21] LABS: Heparin anti-factor XA UFH 0.51 IU/mL (0.30-0.70)
[2019-05-04 06:23] LABS: INR 2.8; Prothrombin Time 32.3 Seconds (9.4-12.1)
[2019-05-04 06:35] LABS: BUN/Creatinine Ratio 21 (6-26); Blood Urea Nitrogen 16 mg/dL (8-23); Calcium 9.2 mg/dL (8.6-10.3); Carbon Dioxide 24 mEq/L (23-29); Chloride 101 mEq/L (98-107); Glucose 117 mg/dL (70-105); Osmolality,Calculated 286 (280-300); Potassium 3.9 mEq/L (3.5-5.1); Sodium 137 mEq/L (136-145); eGFR For African Americans > 60 (> 60); eGFR For Non-African Americans > 60 (> 60)
[2019-05-04 07:25] VITALS: BP 138/70
[2019-05-04] MEDS: Venlafaxine XR (24 HR) 150 MG CAP.ER.24H PO SCH (08:16)
[2019-05-04] MEDS: Loratadine 10 MG TABLET PO SCH (08:16)
[2019-05-04] MEDS: FLUoxetine 20 MG CAPSULE PO SCH (08:16)
[2019-05-04] MEDS: cephALEXin 500 MG CAPSULE PO SCH (08:16)
[2019-05-04] MEDS: hydroCHLOROthiazide 25 MG TABLET PO SCH (08:16)
[2019-05-04] MEDS: Aspirin Enteric Coated 81 MG Tablet PO SCH (08:16)
[2019-05-04] MEDS: cloNIDine HCl 0.1 MG TABLET PO SCH (08:16)
[2019-05-04] MEDS: Lisinopril 20 MG TABLET PO SCH (08:17)
[2019-05-04] MEDS: Acyclovir 200 MG CAPSULE PO SCH (08:17)
--- NOTE | 2019-05-04 11:28 | Discharge Summary ---
- NOTES TO OUTPATIENT PROVIDER Notes to Outpatient Provider: Patient is to follow-up with neurology in 2 month to get the repeat imaging done for observational thrombosis of sinuses. Patient is to follow-up at multiple myeloma clinic. Patient to get a PT/INR done tomorrow at [facility] lab. Primary candidates to follow-up on the INR level and adjust Coumadin dose as necessary. Currently patient is on Coumadin 10 mg daily. Date of Encounter: 05/04/19 Time of Encounter: 11:18 - Discharge Diagnosis (1) Anxiety Priority: Secondary Status: Chronic (2) Multiple myeloma Priority: Secondary Status: Chronic Qualifiers: Multiple myeloma remission status: unspecified Qualified Code(s): C90.00 - Multiple myeloma not having achieved remission (3) Dural sinus thrombosis Priority: Primary Status: Chronic (4) CVA (cerebral vascular accident) Priority: Secondary Status: Chronic Qualifiers: CVA mechanism: unspecified Qualified Code(s): I63.9 - Cerebral infarction, unspecified (5) Back pain Priority: Secondary Status: Chronic Qualifiers: Back pain location: low back pain Chronicity: chronic Back pain laterality: bilateral Sciatica presence: unspecified whether sciatica present Qualified Code(s): M54.5 - Low back pain; G89.29 - Other chronic pain (6) Hypertension Priority: Secondary Status: Chronic Qualifiers: Hypertension type: essential hypertension Qualified Code(s): I10 - Essential (primary) hypertension (7) Anticoagulated on Coumadin Priority: Secondary Status: Chronic (8) UTI (urinary tract infection) Priority: Secondary Status: Acute Qualifiers: Urinary tract infection type: acute cystitis Hematuria presence: without hematuria Qualified Code(s): N30.00 - Acute cystitis without hematuria Hospital course: Ms. Edwards is a 69 year old female with past medical history of multiple myeloma following up with oncology presented to the hospital from the neurologist because of dual cerebral sinus thrombosis. Patient was started on heparin and then was later bridged to Coumadin. Patient hospital course was complicated by UTI and patient was placed on Keflex 500 mg 4 times a day for 5 days. Patient's INR at discharge was 2.8. Patient was advised to get lab done at [facility] for INR daily after the discharge. Patient was advised to follow-up with primary care provider within one week. Primary care provider needs to follow up on the INR level. Patient is to follow-up with neurology in 2 month and also need repeat imaging to see resolution of thrombosis. Patient was discharged in stable condition. Patient understood and verbalized the plan of care. Discharge discussed with: patient, family, nurse - Time Spent with Patient Total time spent providing and/or coordinating discharge services:35 Time spent: Greater than 30 minutes - Discharge Medications Prescriptions: New Warfarin perPT [Coumadin perPT] 10 mg PO DAILY@1800 #7 each cephALEXin [Keflex] 500 mg PO QID #8 capsule Continued Lidocaine/Prilocaine [Emla] 1 appl TP AD #30 gm Aspirin [Lo-Dose Aspirin EC] 81 mg PO DAILY hydroCHLOROthiazide [Hydrochlorothiazide] 25 mg PO DAILY cloNIDine HCl [CloNIDine HCl] 0.1 mg PO TID Lisinopril [Zestril] 40 mg PO DAILY Cetirizine HCl [24Hour Allergy] 10 mg PO DAILY Venlafaxine XR (24 HR) [Effexor Xr] 150 mg PO DAILY #90 cap.er.24h Diphenoxylate/Atropine [Lomotil 2.5 mg/0.025 mg] 2 each PO TID PRN 20 Days #120 tablet PRN Reason: Diarrhea Ergocalciferol (VITAMIN D2) [Vitamin D2] 50,000 unit PO 2XW #24 capsule Oxycodone HCl [Roxybond] 5 mg PO Q6H PRN 20 Days #80 tablet.orl PRN Reason: Pain Potassium Chloride [K-Tab ER] 20 meq PO DAILY Acyclovir [Zovirax] 400 mg PO BID #180 tablet FLUoxetine HCl [Fluoxetine HCl] 40 mg PO BID #60 capsule LORazepam [Ativan] 0.5 mg PO Q8H PRN 30 Days #60 tablet PRN Reason: Anxiety Oxybutynin [Ditropan] 5 mg PO DAILY #30 tablet Prochlorperazine Maleate [Compazine] 10 mg PO Q6H PRN #30 tablet PRN Reason: Nausea Home Medications: Lidocaine/Prilocaine [Emla] 1 appl TP AD #30 gm 05/11/17 [Rx] Aspirin [Lo-Dose Aspirin EC] 81 mg PO DAILY 11/10/17 [History] hydroCHLOROthiazide [Hydrochlorothiazide] 25 mg PO DAILY 01/05/18 [History] cloNIDine HCl [CloNIDine HCl] 0.1 mg PO TID 02/03/18 [History] Lisinopril [Zestril] 40 mg PO DAILY 03/04/18 [History] Cetirizine HCl [24Hour Allergy] 10 mg PO DAILY 07/06/18 [History] Venlafaxine XR (24 HR) [Effexor Xr] 150 mg PO DAILY #90 cap.er.24h 08/03/18 [Rx] Diphenoxylate/Atropine [Lomotil 2.5 mg/0.025 mg] 2 each PO TID PRN 20 Days #120 tablet 10/11/18 [Rx] Ergocalciferol (VITAMIN D2) [Vitamin D2] 50,000 unit PO 2XW #24 capsule 11/05/18 [Rx] Oxycodone HCl [Roxybond] 5 mg PO Q6H PRN 20 Days #80 tablet.orl 12/09/18 [Rx] Acyclovir [Zovirax] 400 mg PO BID #180 tablet 12/21/18 [Rx] Potassium Chloride [K-Tab ER] 20 meq PO DAILY 12/21/18 [History] FLUoxetine HCl [Fluoxetine HCl] 40 mg PO BID #60 capsule 01/12/19 [Rx] LORazepam [Ativan] 0.5 mg PO Q8H PRN 30 Days #60 tablet 01/12/19 [Rx] Oxybutynin [Ditropan] 5 mg PO DAILY #30 tablet 01/12/19 [Rx] Prochlorperazine Maleate [Compazine] 10 mg PO Q6H PRN #30 tablet 01/12/19 [Rx] Warfarin perPT [Coumadin perPT] 10 mg PO DAILY@1800 #7 each 05/04/19 [Rx] cephALEXin [Keflex] 500 mg PO QID #8 capsule 05/04/19 [Rx] Allergies/Adverse Reactions: Allergy/AdvReac Type Severity Reaction Status Date / Time No Known Allergies Allergy Verified 04/28/19 17:28 Date of admission: 04/30/19 17:36 Primary care physician: Sylvester Boswell MD Consults: 04/27/19 16:31 Consult to Oncology [CONS] Routine Consulting Provider: [facility] Reason for Consult: Pt presented with the dural venous thrombosis, has hx of breast ca and MM, needs recommendations regarding the duration of the AC. Call Completed: Yes Discharging clinician: Brandon Hylton Anticipated date of discharge: 05/04/19 - Constitutional Vitals: Temp Pulse Resp BP Pulse Ox 97.8 F 93 14 138/70 97 05/04/19 07:23 05/04/19 07:23 05/04/19 04:39 05/04/19 07:23 05/04/19 04:39 General appearance: Present: cooperative, A&O X 3 Exam: General: Alert and oriented, no physical distress, able to follow commands. Respiratory: Normal vesicular breathing, no added sounds, breathing equal in both sides. CVS: Normal heart sounds, no murmurs, no edema. Extremities: No peripheral edema, peripheral pulses intact. Gastrointestinal: Soft, nontender abdomen, normal abdominal sounds. No distention noted. Genitourinary: No paravertebral tenderness. Neurological: Alert and oriented. Motor exam normal in lower extremites, sensations to light touch normal, plantar reflexes decreased on both sides, finger ot nose test normal - Patient Status Disposition: Home, Self-Care Condition: Good Functional capacity at discharge: independent ambulation Overall status at discharge: patient is progressing back to baseline - Discharge Instructions Follow Up With: Sylvester Boswell MD [Primary Care Provider] - 05/09/19 11:30 am () Tracie Schreiber MD [Partnered Physician] - 06/29/19 11:30 am Forms: ED Satisfaction Letter, Work/School Release Additional Instructions: Patient needs to get INR done tomorrow and needs to follow-up with primary care provider for results of INR to get her Coumadin dose adjusted. - Diet and Activity Activity: increase activity as tolerated Diet: advance to your usual diet
[2019-05-04] MEDS ORDERED: *HR* Warfarin 5 MG TABLET PO ONE (18:00)
== END 2019-05-04 14:22 | disposition home or self-care (01) | DRG 92 ==
LOC: EMEROOARM 09:26 → 2NENU 09:26 → SUATTDRO 14:03 → 2NENU 14:47 → SUATTDRO 04-30 17:36
PROVIDERS: ADMIT Internal Medicine; ATTEND Family Medicine